=== PATIENT | female | born 1980 | race African-American/Black ===

== ENCOUNTER 2016-12-19 23:03 | Emergency (ER) | payer BC, MEDICAID ==
[2016-12-19 23:47] LABS: APPEARANCE,URINE SLIGHTLY-CLOUDY; BILIRUBIN,URINE NEGATIVE (NEGATIVE); GLUCOSE, URINE >=500 mg/dL (NEGATIVE); KETONES,URINE NEGATIVE (NEGATIVE); LEUKOCYTE ESTERASE,URINE LARGE (NEGATIVE); NITRITE,URINE NEGATIVE (NEGATIVE); PROTEIN,URINE 30 mg/dL (NEGATIVE); URINE SPECIFIC GRAVITY 1.032; UROBILINOGEN,URINE NEGATIVE mg/dL (<2.0)
[2016-12-20] MEDS ORDERED: METFORMIN HCL 500 MG TABLET PO ONE (01:13)
[2016-12-20] MEDS ORDERED: NITROFURANTOIN MONOHYD/M-CRYST 100 MG CAPSULE PO ONE (01:13)
--- NOTE | 2016-12-20 01:19 | ER Document Report ---
ED GI/ - General Chief Complaint: Urinary Frequency Stated Complaint: URINARY ISSUE Time Seen by Provider: 12/20/16 00:34 Mode of Arrival: Ambulatory Information source: Patient Notes: 36-year-old female presents to ED for urinary frequency and back discomfort starting yesterday morning. She has a history of diabetes type II asthma bronchitis. She states she does not take any medications for her her diabetes since 2014. She states she was first diagnosed in 2008 was started on insulin for year and then took metformin until 2014 states she does not check her sugar and is followed by [facility] TRAVEL OUTSIDE OF THE [place] IN LAST 30 DAYS: No - HPI Patient complains to provider of: Flank pain, Other - Urinary frequency and urgency Onset: This morning Timing/Duration: Gradual, Worse Quality of pain: Achy, Pressure Severity at maximum: Moderate Severity in ED: Moderate Pain Level: 4 Location: Left flank, Right flank Vaginal bleeding (Compared to normal period): None Associated symptoms: Odor, Radiates to back, Urinary frequency, Urinary urgency , Other - Burning with urination Exacerbated by: Movement, Walking Relieved by: Denies Similar symptoms previously: Yes Recently seen / treated by doctor: No - Related Data Allergies/Adverse Reactions: Penicillins Allergy (Intermediate, Verified 10/13/15 18:58) rash aspirin [Aspirin] Allergy (Verified 10/13/15 18:58) Sulfa (Sulfonamide Antibiotics) Allergy (Verified 10/13/15 18:58) Past Medical History - General Information source: Patient - Social History Smoking Status: Current Every Day Smoker Cigarette use (# per day): Yes - 5-6 cigarettes a day Chew tobacco use (# tins/day): No Smoking Education Provided: Yes - less than 2 minutes Frequency of alcohol use: Social Drug Abuse: None 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 Lives with: Family - Daughter Family History: Arthritis, CAD, CVA, DM, Hyperlipidemia, Hypertension, Malignancy, Thyroid Disfunction, Other - sister breast cancer, grandmother pancreatic - Past Medical History Cardiac Medical History: Reports: Hx Hypertension Pulmonary Medical History: Reports: Hx Asthma, Hx Bronchitis EENT Medical History: Reports: None Neurological Medical History: Reports: None Endocrine Medical History: Reports: Hx Diabetes Mellitus Type 2 Renal/ Medical History: Reports: Hx Pelvic Inflammatory Disease Malignancy Medical History: Reports: None GI Medical History: Reports: None Musculoskeltal Medical History: Reports Hx Musculoskeletal Deformity, Reports Hx Musculoskeletal Trauma Skin Medical History: Reports Hx Cellulitis Psychiatric Medical History: Reports: None Traumatic Medical History: Reports: Hx Fractures - toes Infectious Medical History: Reports: None Past Surgical History: Reports: Hx Breast Surgery - cyst/abcess, 2009, Hx Section - 2, Hx Tubal Ligation - Immunizations Immunizations up to date: Yes Hx Diphtheria, Pertussis, Tetanus Vaccination: Yes - 2008 Review of Systems - Review of Systems Constitutional: No symptoms reported EENT: No symptoms reported Cardiovascular: No symptoms reported Respiratory: No symptoms reported Gastrointestinal: No symptoms reported Genitourinary: Burning, Frequency, Flank pain, Urgency Female Genitourinary: No symptoms reported Musculoskeletal: No symptoms reported Skin: No symptoms reported Hematologic/Lymphatic: No symptoms reported Neurological/Psychological: No symptoms reported -: Yes All other systems reviewed and negative Physical Exam - Vital signs Vitals: Temp Pulse Resp BP 98.2 F 101 H 16 123/85 12/19/16 23:12 12/19/16 23:12 12/19/16 23:12 12/19/16 23:12 Interpretation: Normal - General General appearance: Appears well, Alert - HEENT Head: Normocephalic, Atraumatic Eyes: Normal Pupils: PERRL - Respiratory Respiratory status: No respiratory distress Chest status: Nontender Breath sounds: Normal Chest palpation: Normal - Cardiovascular Rhythm: Regular Heart sounds: Normal auscultation Murmur: No - Abdominal Inspection: Normal Distension: No distension Bowel sounds: Normal Tenderness: Nontender Organomegaly: No organomegaly - Back Back: Normal, CVA tenderness - Bilateral - Extremities General upper extremity: Normal inspection, Nontender, Normal color, Normal ROM , Normal temperature General lower extremity: Normal inspection, Nontender, Normal color, Normal ROM , Normal temperature, Normal weight bearing. No: Neel's sign - Neurological Neuro grossly intact: Yes Cognition: Normal Orientation: AAOx4 Loly Coma Scale Eye Opening: Spontaneous Loly Coma Scale Verbal: Oriented Granger Coma Scale Motor: Obeys Commands Granger Coma Scale Total: 15 Speech: Normal Motor strength normal: LUE, RUE, LLE, RLE Sensory: Normal - Psychological Associated symptoms: Normal affect, Normal mood - Skin Skin Temperature: Warm Skin Moisture: Dry Skin Color: Normal Course - Re-evaluation Re-evalutation: 12/20/16 01:53 After reviewing urine discussed patient's diabetic history with her. She states she took insulin from 199904/14/2010 and the metformin from 2009 until 2014 when they told her she no longer needed it she has not been checking her fingerstick sugars. Her blood sugar was 274. Patient was started back on metformin as well as given Macrobid for her UTI and instructed to follow-up with her primary doctor tomorrow to schedule follow-up - Vital Signs Vital signs: Temp Pulse Resp BP Pulse Ox 98.0 F 83 18 117/77 96 12/20/16 01:33 12/20/16 01:33 12/20/16 01:33 12/20/16 01:33 12/20/16 01:33 - Laboratory Laboratory results interpreted by me: 12/19/16 12/20/16 23:10 01:06 POC Glucose 273 H Urine Protein 30 H Urine Glucose (UA) >=500 H Urine Blood SMALL H Ur Leukocyte Esterase LARGE H Discharge - Discharge Clinical Impression: UTI (urinary tract infection) Qualifiers: Urinary tract infection type: site unspecified Hematuria presence: without hematuria Qualified Code(s): N39.0 - Urinary tract infection, site not specified Hyperglycemia due to type 2 diabetes mellitus Qualifiers: 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 This is due to germs growing in the bladder. This is a common problem. This infection usually responds quickly to antibiotics. Your antibiotic should be taken exactly as prescribed. Drink plenty of fluids -- three to four quarts a day. Occasionally, a bladder anesthetic will be prescribed to help stop the feeling of urgency until the antibiotic has a chance to clear the infection. This may cause your urine to be dark orange. Certain urine infections require a culture. If the doctor obtained a culture, the results will be back in two days. You should call to see if a change in treatment is needed. A repeat urinalysis after you finish treatment is often recommended. The physician will let you know if further testing is required. Call the doctor if you develop fever, chills, flank pain, inability to urinate, or blood in the urine. Diabetes You have an abnormally high blood sugar, suspicious for diabetes. Not all high blood sugar requires long-term treatment. High blood sugar can be due to medications, , or the stress of illness. (These cases are "borderline diabetes.") If the doctor feels your high blood sugar might get better with time, you may not require treatment now. You will be scheduled for further evaluation. It's very important that you follow through. Uncontrolled high blood sugar leads to early heart disease , strokes, nerve damage, eye damage, and kidney damage. All diabetics should follow a diet designed to control the blood sugar. Overweight diabetics should exercise regularly and lose weight. If this is not sufficient to control the blood sugar, pills or insulin shots are necessary. Younger people who develop diabetes almost always require insulin daily. Home testing of blood sugars or urine sugar is required. Diabetic teaching is available to help you figure insulin doses and monitor the blood sugar. Call the physician if there is faintness, excess sleepiness, or very rapid breathing. If hypoglycemia (LOW blood sugar) develops, symptoms are shakiness, weakness, sweating, and confusion. In this case, you should eat or drink something with sugar at once. NITROFURANTOIN (MACRODANTIN, MACROBID): You have received a prescription for nitrofurantoin (Macrodantin). This antibiotic is used for urinary tract infections. Women who are or nursing should notify the physician before taking this medicine. If you have ever had a problem caused by this medication in the past, be sure the physician is aware of it. Common side effects of this medicine include nausea, vomiting, or decreased appetite. Notify your physician if these side effects become severe. Immediately stop this medicine and call the physician if you develop cough , shortness of breath, chest pain, weakness, jaundice (yellow color of the skin and whites of the eyes), or a skin rash. Glucophage (Metformin hydrochloride) Glucophage is used to treat diabetes. It helps insulin move sugar from your blood stream into your cells. It also slows production of new blood sugar. Glucophage can be combined with another type of diabetes pill or with insulin injections. Glucophage should NOT be used by patients, true insulin-dependent (juvenile) diabetics, or those prone to acidosis (severe kidney disease, alcoholism, severe heart failure). You MUST NOT receive iodine-containing x-ray dye while taking Glucophage. The medicine must be stopped 2 days before the test. Be certain your doctor is aware you are taking Glucophage before undergoing IVP, angiograms, or other x- rays that require IV injection of dye. Glucophage commonly causes decreased appetite. Some patients may have nausea, vomiting, or diarrhea. If the side effects are severe, call your doctor. Glucophage will not cause hypoglycemia (low blood sugar) when used alone. Some patients using diabetes pills or insulin may experience symptoms of hypoglycemia (flushing, sweats, racing heart, lightheadedness). Eat or drink something sweet. Contact your doctor for further instructions. You may need to reduce the dose of insulin or of the other diabetes pill. FOLLOW-UP CARE: If you have been referred to a physician for follow-up care, call the physician s office for an appointment as you were instructed or within the next two days. If you experience worsening or a significant change in your symptoms, notify the physician immediately or return to the Emergency Department at any time for re-evaluation. Prescriptions: Metformin HCl [Glucophage] 500 mg PO BID #60 tablet Nitrofurantoin/Nitrofuran Mac [Macrobid 100 mg Capsule] 1 tab PO BID #20 capsule Forms: Smoking Cessation Education, Return to Work [facility] - Follow up tomorrow
[2016-12-20 01:34] VITALS: BP 117/77
== END 2016-12-20 01:34 | disposition home or self-care (01) ==
LOC: ER 23:03
DX: N39.0 Urinary tract infection, site not specified (principal); E11.65 Type 2 diabetes mellitus with hyperglycemia; F17.210 Nicotine dependence, cigarettes, uncomplicated; I10 Essential (primary) hypertension; Z88.0 Allergy status to penicillin; Z88.2 Allergy status to sulfonamides; Z88.6 Allergy status to analgesic agent
CPT/HCPCS: 99283; 82962; 81025; 81001; J3490 ×2; J8499

== ENCOUNTER 2017-04-25 20:59 | Emergency (ER) | payer SELFPAY ==
[2017-04-25] MEDS ORDERED: IPRATROPIUM/ALBUTEROL 0.5-2.5 MG/3 ML AMPUL NEB ONE (21:14)
[2017-04-25] MEDS ORDERED: PREDNISONE 20 MG TABLET PO ONE (21:14)
[2017-04-25] MEDS ORDERED: ALBUTEROL SULFATE 0.083% NEB 2.5 MG/3 ML AMPUL NEB SCH (21:29)
--- NOTE | 2017-04-25 22:02 | RADIOLOGY REPORT (SQ) ---
EXAM DESCRIPTION: CHEST SINGLE VIEW COMPLETED DATE/TIME: 04/25/2017 9:53 pm REASON FOR STUDY: ASTHMA COMPARISON: 11/02/2015 EXAM PARAMETERS: NUMBER OF VIEWS: One view. TECHNIQUE: Single frontal radiographic view of the chest acquired. RADIATION DOSE: NA LIMITATIONS: None. FINDINGS: LUNGS AND PLEURA: No opacities, masses or pneumothorax. No pleural effusion. MEDIASTINUM AND HILAR STRUCTURES: No masses. Contour normal. HEART AND VASCULAR STRUCTURES: Heart normal in size. Normal vasculature. BONES: No acute findings. HARDWARE: None in the chest. OTHER: No other significant finding. IMPRESSION: NO ACUTE RADIOGRAPHIC FINDING IN THE CHEST. TECHNICAL DOCUMENTATION: JOB ID: [id number]
--- NOTE | 2017-04-25 23:27 | ER Document Report ---
ED Respiratory Problem - General Chief Complaint: Shortness Of Breath Stated Complaint: BREATHING DIFFICULTY,CHEST PAIN Time Seen by Provider: 04/25/17 23:26 Mode of Arrival: Ambulatory Information source: Patient Notes: Patient is a 37-year-old female with asthma who presents to the ER today for 3 days of shortness of breath with cough and chest pain that started prior to arrival the left side of the chest, worse with breathing, that radiates to the left arm. Patient has a history of heart attack or stroke. Patient has been using her own albuterol inhaler at home without relief. TRAVEL OUTSIDE OF THE [place] IN LAST 30 DAYS: No - Related Data Allergies/Adverse Reactions: Penicillins Allergy (Intermediate, Verified 10/13/15 18:58) rash aspirin [Aspirin] Allergy (Verified 10/13/15 18:58) Sulfa (Sulfonamide Antibiotics) Allergy (Verified 10/13/15 18:58) Past Medical History - General Information source: Patient - Social History Smoking Status: Former Smoker Family History: Arthritis, CAD, CVA, DM, Hyperlipidemia, Hypertension, Malignancy, Thyroid Disfunction, Other - sister breast cancer, grandmother pancreatic Patient has suicidal ideation: No Patient has homicidal ideation: No - Past Medical History Cardiac Medical History: Reports: Hx Hypertension Pulmonary Medical History: Reports: Hx Asthma, Hx Bronchitis Endocrine Medical History: Reports: Hx Diabetes Mellitus Type 2 Renal/ Medical History: Reports: Hx Pelvic Inflammatory Disease. Denies: Hx Peritoneal Dialysis Musculoskeltal Medical History: Reports Hx Musculoskeletal Deformity, Reports Hx Musculoskeletal Trauma Skin Medical History: Reports Hx Cellulitis Traumatic Medical History: Reports: Hx Fractures - toes Past Surgical History: Reports: Hx Breast Surgery - cyst/abcess, 2009, Hx Section - 2, Hx Tubal Ligation - Immunizations Immunizations up to date: Yes Hx Diphtheria, Pertussis, Tetanus Vaccination: Yes - 2008 Review of Systems - Review of Systems Constitutional: See HPI EENT: No symptoms reported Cardiovascular: No symptoms reported Respiratory: See HPI Gastrointestinal: No symptoms reported Genitourinary: No symptoms reported Female Genitourinary: No symptoms reported Musculoskeletal: No symptoms reported Skin: No symptoms reported Hematologic/Lymphatic: No symptoms reported Neurological/Psychological: No symptoms reported Physical Exam - Notes Notes: PHYSICAL EXAMINATION: GENERAL: Mildly ill-appearing, but in no acute distress. HEAD: Atraumatic, normocephalic. EYES: Pupils equal round and reactive to light, extraocular movements intact, sclera anicteric, conjunctiva are normal. ENT: ear canals without erythema or foreign body, TMs pearly nolan with good bony landmarks, nares with mucoid discharge, oropharynx clear without exudates. Moist mucous membranes. Airway patent NECK: Normal range of motion, supple without lymphadenopathy LUNGS: CTAB and equal. No wheezes rales or rhonchi. HEART: Chest tender to palpation over the left, regular rate and rhythm without murmurs ABDOMEN: Soft, no tenderness. No guarding, no rebound EXTREMITIES: Normal range of motion, no pitting edema. No cyanosis. NEUROLOGICAL: Cranial nerves grossly intact. Normal sensory/motor exams. PSYCH: Normal mood, normal affect. SKIN: Warm, Dry, normal turgor, no rashes or lesions noted Course - Re-evaluation Re-evalutation: 04/26/17 00:49 Labwork is unremarkable today including normal set of cardiac enzymes. Chest x- ray is unremarkable today. I will treat patient for bronchitis. - Laboratory Result Diagrams: 04/25/17 23:55 04/25/17 23:55 Laboratory results interpreted by me: 04/25/17 23:55 Glucose 319 H AST 12 L Discharge - Discharge Clinical Impression: Asthmatic bronchitis Qualifiers: Asthma severity: unspecified severity Asthma complication type: with acute exacerbation Qualified Code(s): J45.901 - Unspecified asthma with (acute) exacerbation Condition: Stable Disposition: HOME, SELF-CARE Additional Instructions: Return immediately for any new or worsening symptoms. Follow up with primary care provider, call tomorrow to make followup appointment. Prescriptions: Azithromycin [Zithromax 250 mg Tablet] 250 mg PO ASDIR PRN #6 tablet PRN Reason: Fluconazole [Diflucan] 150 mg PO ONCE PRN #2 tablet PRN Reason: Promethazine/Dextromethorphan [Promethazine-Dm Syrup] 5 ml PO Q8 PRN #120 ml PRN Reason: Forms: Return to Work
[2017-04-25] MEDS ORDERED: IBUPROFEN 800 MG TABLET PO ONE (23:55)
[2017-04-25] MEDS ORDERED: CYCLOBENZAPRINE HCL 10 MG TABLET PO ONE (23:55)
[2017-04-26 00:08] LABS: ABSOLUTE BASOPHILS # (AUTO) 0.1 10^3/uL (0.0-0.2); ABSOLUTE EOSINOPHILS # (AUTO) 0.4 10^3/uL (0.0-0.6); ABSOLUTE LYMPHOCYTES (AUTO) 3.6 10^3/uL (0.5-4.7); ABSOLUTE MONOCYTES (AUTO) 0.6 10^3/uL (0.1-1.4); ABSOLUTE NEUT (AUTO) 4.4 10^3/uL (1.7-8.2); BASOPHILS % (AUTO) 0.9 % (0-2); EOSINOPHILS % (AUTO) 4.1 % (0-6); HEMATOCRIT 42.2 % (36.0-47.0); HEMOGLOBIN 14.2 g/dL (12.0-15.5); HGB HCT DIFFERENCE 0.4; LYMPHOCYTES % (AUTO) 40.1 % (13-45); MEAN CORPUSCULAR HEMOGLOBIN 29.8 pg (27.0-33.4); MEAN CORPUSCULAR HGB CONC 33.6 g/dL (32.0-36.0); MEAN CORPUSCULAR VOLUME 89 fl (80-97); MONOCYTES % (AUTO) 6.2 % (3-13); RED BLOOD COUNT 4.75 10^6/uL (3.72-5.28); RED CELL DISTRIBUTION WIDTH 13.7 % (11.5-14.0); SEGMENTED NEUTROPHILS % (AUTO) 48.7 % (42-78)
[2017-04-26 00:17] LABS: ALANINE AMINOTRANSFERASE 22 U/L (9-52); ALBUMIN 4.3 g/dL (3.5-5.0); ALKALINE PHOSPHATASE 94 U/L (38-126); ANION GAP 11 (5-19); ASPARTATE AMINO TRANSFERASE 12 U/L (14-36); BILIRUBIN,DIRECT 0.4 mg/dL (0.0-0.4); BILIRUBIN,TOTAL 0.4 mg/dL (0.2-1.3); BLOOD UREA NITROGEN 10 mg/dL (7-20); CALCIUM 10.1 mg/dL (8.4-10.2); CARBON DIOXIDE 27 mmol/L (22-30); CHLORIDE 102 mmol/L (98-107); CREATINE KINASE 56 U/L (30-135); CREATININE RESULT 0.62 mg/dL (0.52-1.25); GLUCOSE 319 mg/dL (75-110); POTASSIUM 4.2 mmol/L (3.6-5.0); SODIUM 139.6 mmol/L (137-145)
[2017-04-26 00:30] LABS: CREATINE KINASE MB < 0.22 ng/mL (<4.55); TROPONIN I < 0.012 ng/mL
[2017-04-26] MEDS ORDERED: CYCLOBENZAPRINE HCL 10 MG TABLET PO ONE (00:51)
[2017-04-26] MEDS ORDERED: ALBUTEROL SULFATE HFA (90 MCG/PUFF) 8 GM MDI (1 MDI/ER DISP) IH PRN (00:54)
[2017-04-26 00:58] LABS: APPEARANCE,URINE CLEAR; BILIRUBIN,URINE NEGATIVE (NEGATIVE); GLUCOSE, URINE >=500 mg/dL (NEGATIVE); KETONES,URINE NEGATIVE (NEGATIVE); LEUKOCYTE ESTERASE,URINE SMALL (NEGATIVE); NITRITE,URINE NEGATIVE (NEGATIVE); PROTEIN,URINE NEGATIVE (NEGATIVE); UROBILINOGEN,URINE NEGATIVE mg/dL (<2.0)
[2017-04-26 01:28] VITALS: BP 115/74
== END 2017-04-26 01:32 | disposition home or self-care (01) ==
LOC: ER 20:59
DX: J45.901 Unspecified asthma with (acute) exacerbation (principal); R06.02 Shortness of breath; R07.9 Chest pain, unspecified; R05 Cough; Z87.891 Personal history of nicotine dependence
CPT/HCPCS: 94640; 99285; 36415; 82553; 82550; 85025; 81025; 80053; 81001; 84484; 71010; J3490; J7620

== ENCOUNTER 2017-12-02 20:50 | Emergency (ER) | payer SELFPAY ==
[2017-12-02] MEDS ORDERED: LIDOCAINE 1% INJ-PF (10 MG/ML) 30 ML SDV INJ ONE (22:16)
--- NOTE | 2017-12-02 22:16 | ER Document Report ---
HPI - HPI Pain Level: 3 Context: Patient is a 37-year-old female who presents emergency department the chief complaint of abscess. Patient states that she has a blackhead in between her shoulder blades that she has had for 10 years and in 3 months and while she has a friend tried to pop it and get the contents out. She states 1 week ago a friend tried to pop it but to get everything out so she started putting a cream over top of it and now it is tender and red. She denies any fevers or chills, purulent drainage. - CONSTITUTIONAL Constitutional: DENIES: Fever, Chills - EENT EENT: DENIES: Sore Throat, Ear Pain, Eye problems - NEURO Neurology: DENIES: Headache, Weakness, Vision blurred, Dizzinesss / Vertigo - CARDIOVASCULAR Cardiovascular: DENIES: Chest pain - RESPIRATORY Respiratory: DENIES: Trouble Breathing, Coughing - GASTROINTESTINAL Gastrointestinal: DENIES: Abdominal Pain, Black / Bloody Stools - URINARY Urinary: DENIES: Dysuria, Urgency, Frequency - REPRODUCTIVE LMP: 11/08/17 Reproductive: DENIES: : - MUSCULOSKELETAL Musculoskeletal: DENIES: Extremity pain Past Medical History - Social History Smoking Status: Unknown if Ever Smoked Family History: Arthritis, CAD, CVA, DM, Hyperlipidemia, Hypertension, Malignancy, Thyroid Disfunction, Other - sister breast cancer, grandmother pancreatic Patient has suicidal ideation: No Patient has homicidal ideation: No - Past Medical History Cardiac Medical History: Reports: Hx Hypertension Pulmonary Medical History: Reports: Hx Asthma, Hx Bronchitis Endocrine Medical History: Reports: Hx Diabetes Mellitus Type 2 Renal/ Medical History: Reports: Hx Pelvic Inflammatory Disease. Denies: Hx Peritoneal Dialysis Musculoskeltal Medical History: Reports Hx Musculoskeletal Deformity, Reports Hx Musculoskeletal Trauma Skin Medical History: Reports Hx Cellulitis Traumatic Medical History: Reports: Hx Fractures - toes Past Surgical History: Reports: Hx Breast Surgery - cyst/abcess, 2009, Hx Section - 2, Hx Tubal Ligation - Immunizations Immunizations up to date: Yes Hx Diphtheria, Pertussis, Tetanus Vaccination: Yes - 2008 Vertical Provider Document - CONSTITUTIONAL Agree With Documented VS: Yes Notes: PHYSICAL EXAM GENERAL: Alert, interacts well. HEAD: Normocephalic, atraumatic. EXTREMITIES: Moves all 4 extremities spontaneously. No edema, radial and dorsalis pedis pulses 2/4 bilaterally. No cyanosis. NEUROLOGICAL: Alert and oriented x4. Normal speech. PSYCH: Normal affect, normal mood. SKIN: Warm, dry, normal turgor. 2cm erythematous and firm area with overlying scab - INFECTION CONTROL TRAVEL OUTSIDE OF THE [place] IN LAST 30 DAYS: No Course - Re-evaluation Re-evalutation: 12/02/17 22:55 Patient is a 37-year-old female is hemodynamically stable, no acute distress. VSS. Site was anesthetized and incision and drainage for approximately 5 cc of purulent material. Patient given strict return precautions and stable for discharge home. - Vital Signs Vital signs: Temp Pulse Resp BP Pulse Ox 98.1 F 90 19 122/77 100 12/02/17 20:54 12/02/17 20:54 12/02/17 20:54 12/02/17 20:54 12/02/17 20:54 Procedures - Incision and Drainage Back Type: Simple Anesthetic type: 1% Lidocaine mL's of anesthetic: 5 Blade size: 11 I&D procedure: Betadine prep applied Incision Method: Incision made by scalpel Discharge - Discharge Clinical Impression: Abscess Condition: Good Disposition: HOME, SELF-CARE Instructions: Abscess ([facility]) Prescriptions: Clindamycin HCl 450 mg PO TID #45 capsule Referrals: BRENDAN MOON DO [Primary Care Provider] - Follow up in 3-5 days
[2017-12-02] MEDS ORDERED: CLINDAMYCIN HCL 150 MG CAPSULE PO ONE (22:57)
[2017-12-02 23:20] VITALS: BP 122/74
== END 2017-12-02 23:20 | disposition home or self-care (01) ==
LOC: ER 20:50
DX: L02.212 Cutaneous abscess of back [any part, except buttock and flank] (principal); E11.9 Type 2 diabetes mellitus without complications; I10 Essential (primary) hypertension; J45.909 Unspecified asthma, uncomplicated
CPT/HCPCS: 99283; 10060; J3490

== ENCOUNTER 2018-01-05 20:40 | Emergency (ER) | payer SELFPAY ==
[2018-01-05] MEDS ORDERED: DEXAMETHASONE SOD PHOS INJ 10 MG/1 ML VIAL IM ONE (21:39)
--- NOTE | 2018-01-05 21:42 | ER Document Report ---
ED ENT - General Chief Complaint: Sore Throat Stated Complaint: SORE THROAT Time Seen by Provider: 01/05/18 21:16 Mode of Arrival: Ambulatory Information source: Patient TRAVEL OUTSIDE OF THE [place] IN LAST 30 DAYS: No - HPI Patient complains to provider of: Throat problem Notes: Patient is here with complaints of sore throat. States that she had symptoms for about a week now. She has had nasal congestion, runny nose, cough, loss of voice. She had fevers initially, but these have since resolved. She also has a history of allergies and just thinking that her symptoms were potentially due to her allergies. She has been taking Zyrtec. She denies any difficulty breathing or swallowing. She has pain with swallowing. She denies any nausea, vomiting, diarrhea. No chest pain or shortness of breath. No rash. She does report that her children were sick with similar symptoms a week prior to her being sick. Pain is worse with swelling, nothing makes it better. She denies any other complaints at this time. - Related Data Allergies/Adverse Reactions: Penicillins Allergy (Intermediate, Verified 12/02/17 20:51) rash aspirin [Aspirin] Allergy (Verified 12/02/17 20:51) Sulfa (Sulfonamide Antibiotics) Allergy (Verified 12/02/17 20:51) Past Medical History - Social History Smoking Status: Current Every Day Smoker Chew tobacco use (# tins/day): No Frequency of alcohol use: Social Drug Abuse: None Family History: Arthritis, CAD, CVA, DM, Hyperlipidemia, Hypertension, Malignancy, Thyroid Disfunction, Other - sister breast cancer, grandmother pancreatic Patient has suicidal ideation: No Patient has homicidal ideation: No - Past Medical History Cardiac Medical History: Reports: Hx Hypertension Pulmonary Medical History: Reports: Hx Asthma, Hx Bronchitis Endocrine Medical History: Reports: Hx Diabetes Mellitus Type 2 Renal/ Medical History: Reports: Hx Pelvic Inflammatory Disease. Denies: Hx Peritoneal Dialysis Musculoskeltal Medical History: Reports Hx Musculoskeletal Deformity, Reports Hx Musculoskeletal Trauma Skin Medical History: Reports Hx Cellulitis Traumatic Medical History: Reports: Hx Fractures - toes Past Surgical History: Reports: Hx Breast Surgery - cyst/abcess, 2009, Hx Section - 2, Hx Tubal Ligation - Immunizations Immunizations up to date: Yes Hx Diphtheria, Pertussis, Tetanus Vaccination: Yes - 2008 Review of Systems - Review of Systems -: Yes All other systems reviewed and negative Physical Exam - Vital signs Vitals: Temp Pulse Resp BP Pulse Ox 99.8 F 93 20 122/82 98 01/05/18 20:53 01/05/18 20:53 01/05/18 20:53 01/05/18 20:53 01/05/18 20:53 - Notes Notes: GENERAL: alert, cooperative, nontoxic, no distress. HEAD: normocephalic, atraumatic EYES: conjunctiva pink without discharge, no external redness or swelling. EARS: no external swelling, no external redness, no mastoid redness, swelling, tenderness. Ear canals are clear without swelling or drainage. TMs pearly cantrell , no redness, no bulging, normal landmarks, no perforation. NOSE: atraumatic, no external swelling. clear rhinorrhea noted. MOUTH/THROAT: mucous membranes moist and pink, posterior pharynx without erythema, swelling, exudate. No trismus or drooling. Slightly hoarse voice. NECK: soft, supple, full range of motion, no meningismus. CHEST: no distress, lungs clear and equal throughout. No wheezing, rales, rhonchi. CARDIAC: regular rate and rhythm, no murmur, normal capillary refill, normal pulses. No peripheral edema noted. BACK: full range of motion, no CVA tenderness. EXTREMITIES: full range of motion of all extremities. No redness, no swelling. NEURO: alert and oriented A&O3, no focal deficits, full range of motion of all extremities. PYSCH: appropriate mood, affect. Patient is cooperative. SKIN: pink, warm, dry, no rash. Course - Re-evaluation Re-evalutation: 01/05/18 23:16 Patient is nontoxic appearing with stable vitals. The patient is here with complaints of sore throat, cough, loss of voice for the last week. She has a benign exam. She is in no distress. No sign of peritonsillar abscess, epiglottitis, retropharyngeal abscess. Airway is patent. Rapid strep is negative. She does have a slightly hoarse voice. She is also noted to have a cough. Likely has some laryngitis from a viral infection. Rapid strep was negative. Patient was given Decadron in the emergency department. She will be discharged home with Flonase, Naprosyn, instructions to drink plenty of fluids. Follow-up if not better in the next week, sooner for worsening symptoms, high fever, difficulty breathing or swallowing, persistent vomiting, or for any further concerns. The patient is noted to have elevated blood pressure during today's emergency department visit. The patient was informed of this finding. The patient was instructed that this may be related to pre-hypertension and requires further evaluation with a primary care provider. The patient has no hypertensive symptoms at this time. The patient's emergency department workup and current diagnosis were explained to the patient and or family. Follow-up instructions were provided. Medications if prescribed were discussed. Instructions for when to return to the emergency department including specific worrisome symptoms were discussed with the patient and/or family. - Vital Signs Vital signs: Temp Pulse Resp BP Pulse Ox 99.8 F 93 20 122/82 98 01/05/18 20:53 01/05/18 20:53 01/05/18 20:53 01/05/18 20:53 01/05/18 20:53 Discharge - Discharge Clinical Impression: Laryngitis URI (upper respiratory infection) Qualifiers: URI type: unspecified viral URI Qualified Code(s): J06.9 - Acute upper respiratory infection, unspecified Condition: Stable Disposition: HOME, SELF-CARE Instructions: Laryngitis ([facility]), Upper Respiratory Illness ([facility]), Viral Syndrome ([facility]) Additional Instructions: Take medications as prescribed. Drink plenty fluids. Follow-up with your doctor if not better in 1 week, sooner for worsening symptoms, high fever, difficulty breathing or swelling, persistent vomiting, or for any further concerns. Your blood pressure was elevated during today's visit. Have this rechecked with your doctor. Prescriptions: Fluticasone Propionate [Flonase Nasal [place] 50 Mcg/[place] 16 gm] 1 spray NASL Q12 #1 inhaler Naproxen [Naprosyn] 500 mg PO BID #20 tablet Forms: Elevated Blood Pressure, Smoking Cessation Education Referrals: JACOB CASTRO MD [Primary Care Provider] - Follow up as needed
[2018-01-05 23:43] VITALS: BP 117/78
== END 2018-01-05 23:43 | disposition home or self-care (01) ==
LOC: ER 20:40
DX: J04.0 Acute laryngitis (principal); B97.89 Other viral agents as the cause of diseases classified elsewhere; J02.9 Acute pharyngitis, unspecified; R09.81 Nasal congestion; R05 Cough; R09.89 Other specified symptoms and signs involving the circulatory and respiratory systems; R49.0 Dysphonia; I10 Essential (primary) hypertension; E11.9 Type 2 diabetes mellitus without complications; F17.200 Nicotine dependence, unspecified, uncomplicated; J45.909 Unspecified asthma, uncomplicated; Z79.899 Other long term (current) drug therapy; Z88.2 Allergy status to sulfonamides; Z88.6 Allergy status to analgesic agent; Z88.0 Allergy status to penicillin
CPT/HCPCS: 99283; 96372; 87070; 87880; J1100

== ENCOUNTER 2018-04-12 15:59 | Emergency (ER) | payer SELFPAY ==
[2018-04-12] MEDS ORDERED: KETOROLAC TROMETHAMINE 60 MG/2 ML SDV IM ONE (16:36)
[2018-04-12] MEDS ORDERED: BACLOFEN 20 MG TABLET PO ONE (16:36)
--- NOTE | 2018-04-12 17:09 | ER Document Report ---
ED General Pain - General Chief Complaint: Numbness of Arm Stated Complaint: BODY PAIN Time Seen by Provider: 04/12/18 16:35 Mode of Arrival: Ambulatory Information source: Patient Notes: Chief complaint: Left shoulder left back, left arm pain History of complain:( obtained from----patient) 38 years old female presents today with nearly 2-3 day history of left shoulder left arm numbness and left upper back pain. Particularly on change of position and moving around. Therefore present to the ED. No known injury. 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 No fever chills or other constitutional symptoms. Onset: Gradual Duration: Few days Severity: Moderate to severe Quality: Sharp crampy Context: As described above Exacerbating factor and relieving factors: Change of position REVIEW OF SYSTEMS: CONSTITUTIONAL : Denies fever, chills, or sweats. Denies recent illness. EENT: Denies eye, ear, throat, or mouth pain or symptoms. Denies nasal or sinus congestion or discharge. Denies throat, tongue, or mouth swelling or difficulty swallowing. CARDIOVASCULAR: Denies chest pain. Denies palpitations or racing or irregular heart beat. Denies ankle edema. RESPIRATORY: Denies cough, cold, or chest congestion. Denies shortness of breath, difficulty breathing, or wheezing. GASTROINTESTINAL: Denies distention. Denies nausea, vomiting, or diarrhea. Denies blood in vomitus, stools, or per rectum. Denies black, tarry stools. Denies constipation. GENITOURINARY: Denies difficulty urinating, painful urination, burning, frequency, blood in urine, or discharge. FEMALE GENITOURINARY: Denies vaginal bleeding, heavy or abnormal periods, irregular periods. Denies vaginal discharge or odor. MUSCULOSKELETAL: Denies back or neck pain or stiffness. Denies joint pain or swelling. SKIN: Denies rash, lesions or sores. HEMATOLOGIC : Denies easy bruising or bleeding. LYMPHATIC: Denies swollen, enlarged glands. NEUROLOGICAL: Denies confusion or altered mental status. Denies passing out or loss of consciousness. Denies dizziness or lightheadedness. Denies headache. Denies weakness or paralysis or loss of use of either side. Denies problems with gait or speech. Denies sensory loss, numbness, or tingling. Denies seizures. PSYCHIATRIC: Denies anxiety or stress. Denies depression, suicidal ideation, or homicidal ideation. ALL OTHER SYSTEMS REVIEWED AND NEGATIVE. PHYSICAL EXAMINATION: GENERAL: Well-appearing, well-nourished and in no acute distress. HEAD: Atraumatic, normocephalic. EYES: Pupils equal round and reactive to light, extraocular movements intact, conjunctiva are normal. ENT: Nares patent, oropharynx clear without exudates. Moist mucous membranes. NECK: Normal range of motion, supple without lymphadenopathy LUNGS: Breath sounds clear to auscultation bilaterally and equal. No wheezes rales or rhonchi. HEART: Regular rate and rhythm without murmurs ABDOMEN: Soft, nontender, nondistended abdomen. No guarding, no rebound. No masses appreciated. Examination of genitals-deferred Musculoskeletal: Sharp tenderness were noted the entire distribution of the trapezoid muscle on the left side. NEUROLOGICAL: Cranial nerves grossly intact. Normal speech, normal gait. Normal sensory, motor exams PSYCH: Normal mood, normal affect. SKIN: Warm, Dry, normal turgor, no rashes or lesions noted. Dictation was performed using [employer] voice recognition software TRAVEL OUTSIDE OF THE [place] IN LAST 30 DAYS: No - HPI Notes: Dictated - Related Data Allergies/Adverse Reactions: Penicillins Allergy (Intermediate, Verified 12/02/17 20:51) rash aspirin [Aspirin] Allergy (Verified 12/02/17 20:51) Sulfa (Sulfonamide Antibiotics) Allergy (Verified 12/02/17 20:51) Past Medical History - Social History Smoking Status: Never Smoker Chew tobacco use (# tins/day): No Frequency of alcohol use: None Drug Abuse: None Lives with: Family Family History: Reviewed & Not Pertinent, Arthritis, CAD, CVA, DM, Hyperlipidemia, Hypertension, Malignancy, Thyroid Disfunction, Other - sister breast cancer, grandmother pancreatic Patient has suicidal ideation: No Patient has homicidal ideation: No - Past Medical History Cardiac Medical History: Reports: Hx Hypertension Pulmonary Medical History: Reports: Hx Asthma, Hx Bronchitis Endocrine Medical History: Reports: Hx Diabetes Mellitus Type 2 Renal/ Medical History: Reports: Hx Pelvic Inflammatory Disease. Denies: Hx Peritoneal Dialysis Musculoskeletal Medical History: Reports Hx Musculoskeletal Deformity, Reports Hx Musculoskeletal Trauma Skin Medical History: Reports Hx Cellulitis Traumatic Medical History: Reports: Hx Fractures - toes Past Surgical History: Reports: Hx Breast Surgery - cyst/abcess, 2009, Hx Section - 2, Hx Tubal Ligation - Immunizations Immunizations up to date: Yes Hx Diphtheria, Pertussis, Tetanus Vaccination: Yes - 2008 Review of Systems - Review of Systems Notes: Dictated Physical Exam - Vital signs Vitals: Temp Pulse Resp BP Pulse Ox 97.9 F 106 H 18 131/86 H 99 04/12/18 16:07 04/12/18 16:07 04/12/18 16:07 04/12/18 16:07 04/12/18 16:07 - Notes Notes: Dictated Course - Re-evaluation Re-evalutation: 04/12/18 17:06 Given baclofen and Toradol - Vital Signs Vital signs: Temp Pulse Resp BP Pulse Ox 97.9 F 106 H 18 131/86 H 99 04/12/18 16:07 04/12/18 16:07 04/12/18 16:07 04/12/18 16:07 04/12/18 16:07 Discharge - Discharge Clinical Impression: Trapezius muscle strain Qualifiers: Encounter type: initial encounter Laterality: left Qualified Code(s): S46.812A - Strain of other muscles, fascia and tendons at shoulder and upper arm level, left arm, initial encounter Condition: Fair Disposition: HOME, SELF-CARE Instructions: Sprain ([facility]) Additional Instructions: Sprain Your injury is a sprain. A sprain results from stretching or tearing of the ligaments, usually from a twisting injury. The ligaments will require time and protection in order to heal properly. Many sprains are quite disabling and should be taken seriously. The usual initial treatment of sprains is cold packs, elevation, and rest of the injured area. Your physician has assessed the seriousness of your ligament injury, and has outlined a treatment plan. Understand that this treatment may change, depending on how you progress. If a re-examination was recommended, it is important that you follow up as instructed. Call the doctor any time if there is severe pain, numbness, or loss of function in the injured area. Prescriptions: Diazepam [Valium 2 mg Tablet] 2 mg PO BID #15 tablet Hydrocodone/Acetaminophen [Hydrocodon-Acetaminophen 5-325] 1 each PO TID #14 tablet Naproxen [Naprosyn] 500 mg PO BID #30 tablet Referrals: JACOB CASTRO MD [Primary Care Provider] - Follow up as needed
[2018-04-12 17:29] VITALS: BP 122/79
== END 2018-04-12 17:29 | disposition home or self-care (01) ==
LOC: ER 15:59
DX: S46.812A Strain of other muscles, fascia and tendons at shoulder and upper arm level, left arm, initial encounter (principal); R20.0 Anesthesia of skin; M25.512 Pain in left shoulder; M54.9 Dorsalgia, unspecified; I10 Essential (primary) hypertension; E11.9 Type 2 diabetes mellitus without complications; J45.909 Unspecified asthma, uncomplicated; X58.XXXA Exposure to other specified factors, initial encounter
CPT/HCPCS: 99284; 96372; J1885; J3490

== ENCOUNTER 2018-09-25 18:44 | Emergency (ER) | payer SELFPAY ==
[2018-09-25] MEDS ORDERED: TRAMADOL HCL 50 MG TABLET PO ONE (20:12)
--- NOTE | 2018-09-25 20:12 | ER Document Report ---
ED General - General Chief Complaint: Hand Pain Stated Complaint: HAND PAIN Time Seen by Provider: 09/25/18 19:38 Primary Care Provider: LAUREEN ACEVEDO DO [Primary Care Provider] - Follow up as needed Mode of Arrival: Ambulatory Information source: Patient TRAVEL OUTSIDE OF THE [place] 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 Approximately 1 week ago she was typing and felt a pop in her hand and has since developed pain with movement of her thumb and her right wrist and she perceives that there is been some swelling present. 1 of the bones on the ulnar side of her hand feels like it sticking out. - Related Data Allergies/Adverse Reactions: Penicillins Allergy (Intermediate, Verified 09/25/18 18:47) rash aspirin [Aspirin] Allergy (Verified 09/25/18 18:47) Sulfa (Sulfonamide Antibiotics) Allergy (Verified 09/25/18 18:47) Past Medical History - General Information source: Patient - Social History Smoking Status: Current Every Day Smoker Chew tobacco use (# tins/day): Yes Frequency of alcohol use: Heavy Drug Abuse: None Family History: Reviewed & Not Pertinent, Arthritis, CAD, CVA, DM, Hyperlipidemia, Hypertension, Malignancy, Thyroid Disfunction, Other - sister breast cancer, grandmother pancreatic Patient has suicidal ideation: No Patient has homicidal ideation: No - Past Medical History Cardiac Medical History: Reports: Hx Hypertension Pulmonary Medical History: Reports: Hx Asthma, Hx Bronchitis Endocrine Medical History: Reports: Hx Diabetes Mellitus Type 2 Renal/ Medical History: Reports: Hx Pelvic Inflammatory Disease. Denies: Hx Peritoneal Dialysis Musculoskeletal Medical History: Reports Hx Musculoskeletal Deformity, Reports Hx Musculoskeletal Trauma Skin Medical History: Reports Hx Cellulitis Traumatic Medical History: Reports: Hx Fractures - toes Past Surgical History: Reports: Hx Breast Surgery - cyst/abcess, 2009, Hx Section - 2, Hx Tubal Ligation - Immunizations Immunizations up to date: Yes Hx Diphtheria, Pertussis, Tetanus Vaccination: Yes - 2008 Review of Systems - Review of Systems Notes: Constitutional: No fevers. No chills. EENT: No eye redness. No eye pain. No ear pain. No sore throat. Cardiovascular: No chest pain. No palpitations. Respiratory: No cough. No shortness of breath. No respiratory distress. Gastrointestinal: No abdominal pain. No nausea, vomiting, or diarrhea. Genitourinary: Atraumatic. No lesions. No pain. No discharge. Musculoskeletal: Left hand and wrist pain and swelling Skin: No rash or lesions. Lymphatic: No swollen lymph nodes. Neurologic: No headache. No syncope. Psychiatric: No suicidal or homicidal ideation. Physical Exam - Notes Notes: General: Well-developed, well-nourished. In no acute distress. Non-toxic appearing. Cardiac: Well-perfused. Regular rate and rhythm. No murmurs, rubs, or gallops. Pulmonary: No respiratory distress. No cyanosis. Bilateral lung fiels are clear to auscultation. Abdominal: Non-distended. Non-rigid. Bowels sounds are present in all four quadrants. No guarding or rebound. HEENT: Head is atraumatic. Conjunctivae not reddened. No tearing. PERRL. EOMI. Orbits atraumatic. No periorbital swelling or erythema. Oropharynx is without erythema, swelling, or exudates. Neck: Supple. No adenopathy. No meningismus. Dermatologic: Warm with good turgor. No rash. Atraumatic. Chest: Atraumatic. No chest wall tenderness to palpation. Musculoskeletal: There is tenderness to palpation of the left proximal hand palmar and dorsal aspects. No deformities. No obvious soft tissue swelling or erythema. Flexion and extension of the left wrist elicits tenderness. Distal neurovascular exam is intact Genitourinary: Examination deferred Neurologic: No gross neurologic deficits. Psychiatric: Normal mood. Course - Re-evaluation Re-evalutation: 09/25/18 20:11 X-ray but probable sprain/tendinitis. Will need OrthO. 09/25/18 21:07 X-ray negative as expected. Velcro wrist splint. Will refer to Orth [facility] Discharge - Discharge Clinical Impression: Left wrist sprain Qualifiers: Encounter type: initial encounter Qualified Code(s): S63.502A - Unspecified sprain of left wrist, initial encounter Condition: Good Disposition: HOME, SELF-CARE Instructions: Sprain ([facility]) Prescriptions: Tramadol HCl/Acetaminophen [Ultracet 37.5 mg/325 mg Tablet] 1 each PO Q6HP PRN #12 tablet PRN Reason: Referrals: LAUREEN ACEVEDO DO [Primary Care Provider] - Follow up as needed HAYDEN WHEELER MD [ACTIVE STAFF] - Follow up in 1 week
--- NOTE | 2018-09-25 20:47 | RADIOLOGY REPORT (SQ) ---
3 VIEWS OF THE LEFT HAND HISTORY: Joint pain. COMPARISON: None. FINDINGS: No acute fracture is seen. The joint spaces are preserved. The soft tissues are mildly swollen. IMPRESSION: No acute fracture or dislocation.
[2018-09-25 21:22] VITALS: BP 133/89
== END 2018-09-25 21:27 | disposition home or self-care (01) ==
LOC: ER 18:44
DX: S63.502A Unspecified sprain of left wrist, initial encounter (principal); M79.642 Pain in left hand; M25.532 Pain in left wrist; X58.XXXA Exposure to other specified factors, initial encounter; F17.200 Nicotine dependence, unspecified, uncomplicated; I10 Essential (primary) hypertension; E11.9 Type 2 diabetes mellitus without complications; J45.909 Unspecified asthma, uncomplicated
CPT/HCPCS: 99283; 73130; L3908

== ENCOUNTER 2018-10-27 16:03 | Emergency (ER) | payer SELFPAY ==
--- NOTE | 2018-10-27 16:31 | ER Document Report ---
ED Medical Screen (RME) - General Chief Complaint: Allergic Reaction Stated Complaint: POSSIBLE ALLERGIC REACTION Time Seen by Provider: 10/27/18 16:29 Primary Care Provider: LAUREEN ACEVEDO DO [Primary Care Provider] - Follow up as needed Notes: Patient thinks she is having allergic reaction at the site where she had a tattoo placed on her proximal left lower leg on October 18. She says that it started swelling and painful and draining fluid Chap[place], 2 days ago. She described it as "running pus". It is swollen and painful. She has been rinsing the wound with alcohol and applying Neosporin ointment. Patient is a NIDDM who is known to be allergic to aspirin, sulfa, and penicillin. Patient says the tattoo dye may have contained sulfa. TRAVEL OUTSIDE OF THE [place] IN LAST 30 DAYS: No - Related Data Allergies/Adverse Reactions: Penicillins Allergy (Intermediate, Verified 09/25/18 18:47) rash aspirin [Aspirin] Allergy (Verified 09/25/18 18:47) Sulfa (Sulfonamide Antibiotics) Allergy (Verified 09/25/18 18:47) Past Medical History - Past Medical History Cardiac Medical History: Reports: Hx Hypertension Pulmonary Medical History: Reports: Hx Asthma, Hx Bronchitis Endocrine Medical History: Reports: Hx Diabetes Mellitus Type 2 Renal/ Medical History: Reports: Hx Pelvic Inflammatory Disease. Denies: Hx Peritoneal Dialysis Musculoskeltal Medical History: Reports Hx Musculoskeletal Deformity, Reports Hx Musculoskeletal Trauma Skin Medical History: Reports Hx Cellulitis Traumatic Medical History: Reports: Hx Fractures - toes Past Surgical History: Reports: Hx Breast Surgery - cyst/abcess, 2009, Hx Section - 2, Hx Tubal Ligation - Immunizations Immunizations up to date: Yes Hx Diphtheria, Pertussis, Tetanus Vaccination: Yes - 2008 Physical Exam - Vital signs Vitals: Temp Pulse Resp BP Pulse Ox 99.2 F 91 20 119/81 100 10/27/18 16:20 10/27/18 16:20 10/27/18 16:20 10/27/18 16:20 10/27/18 16:20 Course - Vital Signs Vital signs: Temp Pulse Resp BP Pulse Ox 99.2 F 91 20 119/81 100 10/27/18 16:20 10/27/18 16:20 10/27/18 16:20 10/27/18 16:20 10/27/18 16:20 Doctor's Discharge - Discharge Referrals: LAUREEN ACEVEDO DO [Primary Care Provider] - Follow up as needed
--- NOTE | 2018-10-27 17:28 | ER Document Report ---
ED General - General Chief Complaint: Allergic Reaction Stated Complaint: POSSIBLE ALLERGIC REACTION Time Seen by Provider: 10/27/18 16:29 Primary Care Provider: LAUREEN ACEVEDO DO [Primary Care Provider] - Follow up as needed Notes: Patient is a 38-year-old female who presents to the emergency department with a chief complaint of an allergic reaction to tattoo ink. She received a tattoo 9 days ago and states that they used black light. She noticed some blisters, drainage, and ecchymosis to the area. The tattoo is on her left calf. She states that it is a throbbing pain that she feels. She took some Benadryl and Aleve last night to help with her symptoms, but has not taken any since. Her past medical history includes diabetes, asthma, environmental allergies, bronchitis, and a cyst removal from 1 of her breasts. TRAVEL OUTSIDE OF THE [place] IN LAST 30 DAYS: No - Related Data Allergies/Adverse Reactions: Penicillins Allergy (Intermediate, Verified 09/25/18 18:47) rash aspirin [Aspirin] Allergy (Verified 09/25/18 18:47) Sulfa (Sulfonamide Antibiotics) Allergy (Verified 09/25/18 18:47) Past Medical History - Social History Smoking Status: Current Every Day Smoker Family History: Reviewed & Not Pertinent, Arthritis, CAD, CVA, DM, Hyp erlipidemia, Hypertension, Malignancy, Thyroid Disfunction, Other - sister breast cancer, grandmother pancreatic Patient has suicidal ideation: No Patient has homicidal ideation: No - Past Medical History Cardiac Medical History: Reports: Hx Hypertension Pulmonary Medical History: Reports: Hx Asthma, Hx Bronchitis Endocrine Medical History: Reports: Hx Diabetes Mellitus Type 2 Renal/ Medical History: Reports: Hx Pelvic Inflammatory Disease. Denies: Hx Peritoneal Dialysis Musculoskeletal Medical History: Reports Hx Musculoskeletal Deformity, Reports Hx Musculoskeletal Trauma Skin Medical History: Reports Hx Cellulitis Traumatic Medical History: Reports: Hx Fractures - toes Past Surgical History: Reports: Hx Breast Surgery - cyst/abcess, 2009, Hx Section - 2, Hx Tubal Ligation - Immunizations Immunizations up to date: Yes Hx Diphtheria, Pertussis, Tetanus Vaccination: Yes - 2008 Review of Systems - Review of Systems Notes: REVIEW OF SYSTEMS: CONSTITUTIONAL : Denies recent illness. Denies recent unintentional weight loss. Denies fever, chills, or sweats. EENT: Denies eye, ear, throat, or mouth pain, discharge, or symptoms. Denies nasal or sinus congestion. CARDIOVASCULAR: Denies chest pain. RESPIRATORY: Denies shortness of breath, cough, congestion, difficulty breathing, or wheezing. GASTROINTESTINAL: Denies nausea, vomiting, and diarrhea. Denies abdominal pain. Denies constipation. GENITOURINARY: Denies difficulty urinating, burning, blood in urine, urgency or frequency. MUSCULOSKELETAL: Denies neck and back pain. Denies joint pain or swelling. SKIN: See HPI HEMATOLOGIC : Denies easy bruising or bleeding. LYMPHATIC: Denies swollen, painful, enlarged glands. NEUROLOGICAL: Denies no numbness or tingling denies weakness. Denies headache. Denies altered mental status. Denies alteration in speech. PSYCHIATRIC: Denies stress, anxiety, alteration in sleep patterns, or depression. All other systems reviewed and negative. Physical Exam - Vital signs Vitals: Temp Pulse Resp BP Pulse Ox 99.2 F 91 20 119/81 100 10/27/18 16:20 10/27/18 16:20 10/27/18 16:20 10/27/18 16:20 10/27/18 16:20 - Notes Notes: PHYSICAL EXAMINATION: GENERAL: Appears well, healthy, well-nourished, no acute distress. HEAD: Normocephalic, atraumatic. EYES: PERRL, conjunctiva normal, all extraocular movements intact, sclera nonicteric ENT: Moist mucous membranes. NECK: Supple, no noticeable swelling, redness, rash. Normal range of motion. LUNGS: Equal breath sounds bilaterally and clear to auscultation. No wheezes rales or rhonchi. CARDIOVASCULAR: S1-S2, regular rate, regular rhythm. Radial pulses 2+, normal. ABDOMEN: Normoactive bowel sounds. Soft, nontender, no guarding, no rebound tenderness, and no masses palpated. EXTREMITIES: Normal strength and range of motion, no pitting or edema. No cyanosis. NEUROLOGICAL: Moves all extremities upon command. Strength 5/5 in all extremities. PSYCH: Normal mood, normal affect. SKIN: Warm, dry. Burn noted to left calf at tattoo site. Course - Re-evaluation Re-evalutation: 10/27/18 17:29 Patient's physical exam is consistent with a burn from her tattoo. She will be started on Keflex for antibiotic treatment of cellulitis. She also be sent home with Neosporin plus pain relief for treatment of burn. Unfortunately she cannot take Silvadene because she is allergic to sulfa medications. She will be started on prednisone. She states that she has taken prednisone before with no complications. It has not raised her blood sugars in the past. She will follow-up with [facility] in regards to this visit. She is in agreement with this plan. She will follow-up with her primary care provider or the [facility]. Verbal discharge instructions were given to the patient. They verbalized understanding. They are stable for discharge. - Vital Signs Vital signs: Temp Pulse Resp BP Pulse Ox 98.2 F 96 20 122/66 94 10/27/18 17:57 10/27/18 17:57 10/27/18 17:57 10/27/18 17:57 10/27/18 17:57 Discharge - Discharge Clinical Impression: Burn Allergic reaction Qualifiers: Encounter type: initial encounter Qualified Code(s): T78.40XA - Allergy, unspe cified, initial encounter Cellulitis Qualifiers: Site of cellulitis: extremity Site of cellulitis of extremity: lower extremity Laterality: left Qualified Code(s): L03.116 - Cellulitis of left lower limb Condition: Stable Disposition: HOME, SELF-CARE Instructions: Dent ([facility]), Soap Cleansing ([facility]) Additional Instructions: You were seen today in the emergency department for an allergic reaction to a tattoo. You have been started on antibiotics. Please take all your antibiotics as prescribed. You have also been started on prednisone, a steroid medication to help with swelling and inflammation. You can take Benadryl as needed for any itching. You have also been prescribed Neosporin + pain relief to help with the burn from your tattoo. Please apply the medication to your tattoo area as prescribed, if you do not improve within the next 4-5 days, noticed the redness spreading, have worsening symptoms, or have any symptoms that are worrisome to you, please return to the emergency department. Prescriptions: Clindamycin HCl [Cleocin 150 mg Capsule] 300 mg PO Q6 7 Days #56 capsule Neomycin/Polymyxin B/Pramoxine [Antibiotic Plus Pain Relief Cr] 28 gm TP TID #1 cream..g. Prednisone [Deltasone 20 mg Tablet] 3 tab PO DAILY 5 Days #15 tablet Forms: Return to Work Referrals: LAUREEN ACEVEDO DO [Primary Care Provider] - Follow up as needed
[2018-10-27] MEDS ORDERED: CLINDAMYCIN HCL 150 MG CAPSULE PO ONE (17:59)
[2018-10-27] MEDS ORDERED: PREDNISONE 20 MG TABLET PO ONE (17:59)
[2018-10-27 18:08] VITALS: BP 122/66
== END 2018-10-27 18:09 | disposition home or self-care (01) ==
LOC: ER 16:03
DX: L03.116 Cellulitis of left lower limb (principal); T24.032A Burn of unspecified degree of left lower leg, initial encounter; X08.8XXA Exposure to other specified smoke, fire and flames, initial encounter; T78.40XA Allergy, unspecified, initial encounter; X58.XXXA Exposure to other specified factors, initial encounter; F17.200 Nicotine dependence, unspecified, uncomplicated; I10 Essential (primary) hypertension; E11.9 Type 2 diabetes mellitus without complications; Z88.0 Allergy status to penicillin; Z88.6 Allergy status to analgesic agent; Z88.2 Allergy status to sulfonamides; Z98.51 Tubal ligation status
CPT/HCPCS: 99283; J7512

== ENCOUNTER 2019-05-29 18:18 | Emergency (ER) | payer SELFPAY ==
[2019-05-29 18:27] VITALS: BP 137/80
[2019-05-29 19:24] LABS: APPEARANCE,URINE SLIGHTLY-CLOUDY; BILIRUBIN,URINE NEGATIVE (NEGATIVE); COLOR,URINE YELLOW; GLUCOSE, URINE >=500 mg/dL (NEGATIVE); KETONES,URINE NEGATIVE (NEGATIVE); PROTEIN,URINE NEGATIVE (NEGATIVE); URINE SPECIFIC GRAVITY 1.037; UROBILINOGEN,URINE NEGATIVE mg/dL (<2.0)
[2019-05-29 19:29] LABS: BACTERIA (WET MOUNT) 4+ BACTERIA SEEN; EPITHELIALS (WET MOUNT) 3+ EPITHELIALS SEEN; T.VAGINALIS (WET MOUNT) TRICHOMONAS SEEN; WBCS (WET MOUNT) 2+ WBCS SEEN; YEAST (WET MOUNT) NO YEAST SEEN
[2019-05-29] MEDS ORDERED: CEFTRIAXONE INJ 250 MG VIAL IM ONE (19:49)
[2019-05-29] MEDS ORDERED: LIDOCAINE 1% INJ-PF (10 MG/ML) 30 ML SDV IM ONE (19:49)
[2019-05-29] MEDS ORDERED: AZITHROMYCIN 250 MG TABLET PO ONE (19:53)
[2019-05-29] MEDS ORDERED: METRONIDAZOLE 500 MG TABLET PO ONE (19:53)
--- NOTE | 2019-05-29 20:02 | ER Document Report ---
HPI - HPI Time Seen by Provider: 05/29/19 18:52 Pain Level: 5 Notes: Patient is an otherwise healthy 39-year-old female presenting to the emergency department with concern for sexually transmitted disease. Patient reports she has been having burning with urination and her boyfriend called her today to tell her that he tested positive for trichomonas. Patient denies any abnormal vaginal discharge, she denies any pelvic pain. - CONSTITUTIONAL Constitutional: DENIES: Fever, Chills - EENT EENT: DENIES: Sore Throat, Ear Pain, Eye problems - NEURO Neurology: DENIES: Headache, Weakness, Vision blurred, Dizzinesss / Vertigo - CARDIOVASCULAR Cardiovascular: DENIES: Chest pain - RESPIRATORY Respiratory: DENIES: Trouble Breathing, Coughing - GASTROINTESTINAL Gastrointestinal: REPORTS: Abdominal Pain. DENIES: Black / Bloody Stools - URINARY Urinary: REPORTS: Dysuria. DENIES: Urgency, Frequency - REPRODUCTIVE Reproductive: DENIES: : - MUSCULOSKELETAL Musculoskeletal: DENIES: Extremity pain Past Medical History - General Information source: Patient - Social History Smoking Status: Current Every Day Smoker Chew tobacco use (# tins/day): No Frequency of alcohol use: Social Drug Abuse: None Family History: Reviewed & Not Pertinent, Arthritis, CAD, CVA, DM, Hyperlipidemia, Hypertension, Malignancy, Thyroid Disfunction, Other - sister breast cancer, grandmother pancreatic Patient has suicidal ideation: No Patient has homicidal ideation: No - Past Medical History Cardiac Medical History: Reports: Hx Hypertension Pulmonary Medical History: Reports: Hx Asthma, Hx Bronchitis Endocrine Medical History: Reports: Hx Diabetes Mellitus Type 2 Renal/ Medical History: Reports: Hx Pelvic Inflammatory Disease. Denies: Hx Peritoneal Dialysis Musculoskeletal Medical History: Reports Hx Musculoskeletal Deformity, Reports Hx Musculoskeletal Trauma Skin Medical History: Reports Hx Cellulitis Traumatic Medical History: Reports: Hx Fractures - toes Past Surgical History: Reports: Hx Breast Surgery - cyst/abcess, 2009, Hx Section - 2, Hx Tubal Ligation - Immunizations Immunizations up to date: Yes Hx Diphtheria, Pertussis, Tetanus Vaccination: Yes - 2009 Vertical Provider Document - CONSTITUTIONAL Notes: PHYSICAL EXAMINATION: GENERAL: Well-appearing, well-nourished and in no acute distress. HEAD: Atraumatic, normocephalic. EYES: Pupils equal round and reactive to light, extraocular movements intact, conjunctiva are normal. ENT: Nares patent, oropharynx clear without exudates. Moist mucous membranes. NECK: Normal range of motion, supple without lymphadenopathy LUNGS: Breath sounds clear to auscultation bilaterally and equal. No wheezes rales or rhonchi. HEART: Regular rate and rhythm without murmurs ABDOMEN: Soft, nontender, nondistended abdomen. No guarding, no rebound. No masses appreciated. Female : Normal external genitalia, no cervical motion tenderness or adnexal tenderness. Small amount of white discharge noted at the cervix. Musculoskeletal: Normal range of motion, no pitting or edema. No cyanosis. NEUROLOGICAL: Cranial nerves grossly intact. Normal speech, normal gait. Normal sensory, motor exams PSYCH: Normal mood, normal affect. SKIN: Warm, Dry, normal turgor, no rashes or lesions noted. - INFECTION CONTROL TRAVEL OUTSIDE OF THE [place] IN LAST 30 DAYS: No Course - Re-evaluation Re-evalutation: Laboratory 05/29/19 05/29/19 05/29/19 18:55 18:55 18:55 Urine Color YELLOW Urine Appearance SLIGHTLY-CLOUDY Urine pH 6.0 Ur Specific [place] 1.037 Urine Protein NEGATIVE Urine Glucose (UA) >=500 H Urine Ketones NEGATIVE Urine Blood NEGATIVE Urine Nitrite (Reflex) NEGATIVE Urine Bilirubin NEGATIVE Urine Urobilinogen NEGATIVE Leukocyte Esterase Rfl SMALL H Urine RBC (Auto) 3 Urine Bacteria (Auto) TRACE Urine WBC (Reflex) 20 Squamous Epi Cells Auto 3 Urine Ascorbic Acid NEGATIVE Epi Cells (Wet Prep) 3+ EPITHELIALS SEEN Bacteria (Wet Prep) 4+ BACTERIA SEEN Trichomonas (Wet Prep) TRICHOMONAS SEEN Vaginal WBC 2+ WBCS SEEN Vaginal Yeast NO YEAST SEEN Chlamydia DNA (PCR) NOT DETECTED N.gonorrhoeae DNA (PCR) NOT DETECTED - Vital Signs Vital signs: Temp Pulse Resp BP Pulse Ox 98.2 F 86 20 137/80 H 100 05/29/19 18:25 05/29/19 18:25 05/29/19 18:25 05/29/19 18:25 05/29/19 18:25 - Laboratory Laboratory results interpreted by me: 05/29/19 18:55 Urine Glucose (UA) >=500 H Leukocyte Esterase Rfl SMALL H Discharge - Discharge Clinical Impression: Trichomonal infection, Bacterial vaginosis Condition: Stable Disposition: HOME, SELF-CARE Additional Instructions: Trichomonas Infection Trichomoniasis is infection of the vagina or male genital tract with Trichomonas vaginalis. It can be asymptomatic or cause urethritis, vaginitis, or occasionally cystitis, epididymitis, or prostatitis. Diagnosis is by microscopic examination of vaginal or prostatic secretions or by urethral culture. Patients and sex partners are treated with metronidazole. T. vaginalis is a flagellated, sexually transmitted protozoan that more often infects women (about 20% of women of reproductive age) than men. Infection may be asymptomatic in either sex, but asymptomatic is the rule for men. In men, protozoa may persist for long periods in the tract without causing symptoms; thus, protozoa may be transmitted unwittingly to sex partners. Trichomoniasis may account for up to 5% of nongonococcal, nonchlamydial urethritis in men in some areas. Co-infection with gonorrhea and other sexually transmitted diseases (STDs) is common. In women, symptoms range from none to copious, yellow-green, frothy vaginal discharge with soreness of the vulva and perineum, dyspareunia, and dysuria. Asymptomatic infection may become symptomatic at any time as the vulva and perineum become inflamed and edema develops in the labia. The vaginal jo and surface of the cervix may have punctate, red "strawberry" spots. Urethritis and possibly cystitis may also occur. Men are usually asymptomatic; however, sometimes urethritis results in a discharge that may be transient, frothy, or purulent or that causes dysuria and frequency, usually early in the morning. Often, urethritis is mild and causes only minimal urethral irritation and occasional moisture at the urethral meatus, under the foreskin, or both. Epididymitis and prostatitis are rare complications. Trichomoniasis is suspected in women with vaginitis, in men with urethritis, and in their sex partners. Suspicion is high if symptoms persist after patients have been evaluated and treated for other infections such as gonorrhea and chlamydial, mycoplasmal, and ureaplasmal infections. In women, diagnosis is based on clinical criteria and in-office testing. The saline wet mount is examined microscopically as soon as possible to detect trichomonads.In men, microscopy of urine is insensitive, although occasionally organisms are visible in a first-voided morning specimen or a centrifuged specimen. Cultures of urine and urethral swabs are more sensitive. As with diagnosis of any STD, patients with trichomoniasis should be tested to exclude other common STDs such as gonorrhea and chlamydial infection. Metronidazole or tinidazole 2 g po in a single dose cures up to 95% of women if sex partners are treated simultaneously. Effectiveness of single-dose regimens in men is not as clear, so treatment is typically with metronidazole or tinidazole 500 mg bid for 5 to 7 days. Sex partners should be screened and treated for trichomoniasis and other STDs. If poor adherence to follow-up is likely, treatment can be initiated in sex partners of patients with documented trichomoniasis without confirming the diagnosis in the partner. You also have an overgrowth of vaginal bacteria, called bacterial vaginosis. this may be caused by the trichomonas infection. You are being treated with an antibiotic called metronidazole. Do not drink alcohol while taking this medication. Complete all of the antibiotic even if your symptoms have resolved. Return for abdominal pain, vomiting, fever of greater than 101F, or any other symptoms that are worrisome to you. Please follow-up with your [employer] or primary care doctor as needed. Prescriptions: Metronidazole [Flagyl 500 mg Tablet] 500 mg PO BID #14 tablet Referrals: LAUREEN ACEVEDO DO [Primary Care Provider] - Follow up as needed
[2019-05-29 20:55] LABS: CHLAM PCR NOT DETECTED (NOT DETECT)
== END 2019-05-29 20:15 | disposition home or self-care (01) ==
LOC: ER 18:18
DX: A59.00 Urogenital trichomoniasis, unspecified (principal); N76.0 Acute vaginitis; B96.89 Other specified bacterial agents as the cause of diseases classified elsewhere; F17.200 Nicotine dependence, unspecified, uncomplicated; I10 Essential (primary) hypertension; E11.9 Type 2 diabetes mellitus without complications; Z98.51 Tubal ligation status
CPT/HCPCS: 87086; 87210; 87088; 81001; 87186; 87491; 87591; J3490; J0696; 96372; 99283

== ENCOUNTER 2019-10-06 17:46 | Emergency (ER) | payer OTHER ==
[2019-10-06] MEDS ORDERED: OXYCODONE HCL IR 5 MG TABLET PO ONE (18:23)
[2019-10-06] MEDS ORDERED: METHOCARBAMOL 500 MG TABLET PO ONE (18:23)
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
[2019-10-06 21:39] VITALS: BP 128/80
== END 2019-10-06 21:35 | disposition home or self-care (01) ==
LOC: ER 17:46
DX: S16.1XXA Strain of muscle, fascia and tendon at neck level, initial encounter (principal); S93.402A Sprain of unspecified ligament of left ankle, initial encounter; V89.2XXA Person injured in unspecified motor-vehicle accident, traffic, initial encounter; F17.210 Nicotine dependence, cigarettes, uncomplicated; I10 Essential (primary) hypertension; E11.9 Type 2 diabetes mellitus without complications; Z88.0 Allergy status to penicillin; Z88.6 Allergy status to analgesic agent; Z88.2 Allergy status to sulfonamides; Z98.51 Tubal ligation status
CPT/HCPCS: 71046; 72125; 72170; 99284

== ENCOUNTER 2019-12-20 12:28 | Emergency (ER) | payer MEDICAID, OTHER ==
--- NOTE | 2019-12-20 12:50 | ER Document Report ---
ED Medical Screen (RME) - General Chief Complaint: Urinary Problem Stated Complaint: URINARY ISSUE Time Seen by Provider: 12/20/19 12:46 Primary Care Provider: LAUREEN ACEVEDO DO [Primary Care Provider] - Follow up as needed Mode of Arrival: Ambulatory Information source: Patient Notes: 39-year-old female with history of asthma diabetes presents to the emergency department with complaints of burning with void urinary frequency and vaginal irritation. Reports vaginal irritation started over a week ago. She thought she had a yeast infection so she treated herself with Monistat 7 days. She finished that on Sunday. Now she is having the vaginal irritation and urinary symptoms. She reports she is sexually active with one partner no protection but is not worried about STD. Reports no vaginal discharge. No other complaints such as fever vomiting diarrhea. I have greeted and performed a rapid initial assessment of this patient. A comprehensive ED assessment and evaluation of the patient, analysis of test results and completion of the medical decision making process will be conducted by additional ED providers. TRAVEL OUTSIDE OF THE [place] IN LAST 30 DAYS: No - Related Data Allergies/Adverse Reactions: Penicillins Allergy (Intermediate, Verified 05/29/19 18:47) rash aspirin [Aspirin] Allergy (Verified 05/29/19 18:47) Sulfa (Sulfonamide Antibiotics) Allergy (Verified 05/29/19 18:47) Past Medical History - Past Medical History Cardiac Medical History: Reports: Hx Hypertension Pulmonary Medical History: Reports: Hx Asthma, Hx Bronchitis Endocrine Medical History: Reports: Hx Diabetes Mellitus Type 2 Renal/ Medical History: Reports: Hx Pelvic Inflammatory Disease. Denies: Hx Peritoneal Dialysis GI Medical History: Reports: Hx Gastroesophageal Reflux Disease Musculoskeltal Medical History: Reports Hx Musculoskeletal Deformity, Reports Hx Musculoskeletal Trauma Skin Medical History: Reports Hx Cellulitis Traumatic Medical History: Reports: Hx Fractures - toes Past Surgical History: Reports: Hx Breast Surgery - cyst/abcess, 2009, Hx Section - 2, Hx Tubal Ligation - Immunizations Immunizations up to date: Yes Hx Diphtheria, Pertussis, Tetanus Vaccination: Yes - 2008 Physical Exam - Vital signs Vitals: Temp Pulse Resp BP Pulse Ox 98.7 F 98 16 123/81 99 12/20/19 12:32 12/20/19 12:32 12/20/19 12:32 12/20/19 12:32 12/20/19 12:32 Course - Vital Signs Vital signs: Temp Pulse Resp BP Pulse Ox 98.7 F 98 16 123/81 99 12/20/19 12:32 12/20/19 12:32 12/20/19 12:32 12/20/19 12:32 12/20/19 12:32 Doctor's Discharge - Discharge Referrals: LAUREEN ACEVEDO DO [Primary Care Provider] - Follow up as needed
--- NOTE | 2019-12-20 13:20 | ER Document Report ---
ED GI/ - General Chief Complaint: Urinary Frequency Stated Complaint: URINARY ISSUE Time Seen by Provider: 12/20/19 12:46 Primary Care Provider: LAUREEN ACEVEDO DO [NO LOCAL MD] - Follow up as needed Mode of Arrival: Ambulatory Information source: Patient Notes: 39-year-old female past medical history significant for diabetes, asthma, allergies presents to the emergency room complaining of dysuria x4 days, vaginal itching for the past 10 days. Patient states she self treated herself with Monistat 7 she finished that on Sunday without relief of symptoms. History of recurrent yeast infection secondary to uncontrolled diabetes. Denies fevers, no nausea, no vomiting, denies any vaginal bleeding, denies any vaginal discharge. TRAVEL OUTSIDE OF THE [place] IN LAST 30 DAYS: No - Related Data Allergies/Adverse Reactions: Penicillins Allergy (Intermediate, Verified 05/29/19 18:47) rash aspirin [Aspirin] Allergy (Verified 05/29/19 18:47) Sulfa (Sulfonamide Antibiotics) Allergy (Verified 05/29/19 18:47) Past Medical History - General Information source: Patient - Social History Smoking Status: Current Every Day Smoker Chew tobacco use (# tins/day): No Frequency of alcohol use: Occasional Drug Abuse: None Lives with: Family Family History: Arthritis, CAD, CVA, DM, Hyperlipidemia, Hypertension, Malignancy, Thyroid Disfunction, Other - sister breast cancer, grandmother pancreatic Patient has homicidal ideation: No Pulmonary Medical History: Reports: Hx Asthma, Hx Bronchitis Endocrine Medical History: Reports: Hx Diabetes Mellitus Type 2 Renal/ Medical History: Reports: Hx Pelvic Inflammatory Disease. Denies: Hx Peritoneal Dialysis GI Medical History: Reports: Hx Gastroesophageal Reflux Disease Musculoskeletal Medical History: Reports Hx Musculoskeletal Deformity, Reports Hx Musculoskeletal Trauma Skin Medical History: Reports Hx Cellulitis Traumatic Medical History: Reports: Hx Fractures - toes Past Surgical History: Reports: Hx Breast Surgery - cyst/abcess, 2009, Hx Section - 2, Hx Tubal Ligation - Immunizations Immunizations up to date: Yes Hx Diphtheria, Pertussis, Tetanus Vaccination: Yes - 2009 Review of Systems - Review of Systems Constitutional: No symptoms reported Cardiovascular: No symptoms reported Respiratory: No symptoms reported Gastrointestinal: Abdominal pain - left lower quadrant pelvic pain Genitourinary: Dysuria. denies: Frequency, Flank pain, Hematuria Female Genitourinary: Other - Vaginal itching Skin: No symptoms reported -: Yes All other systems reviewed and negative Physical Exam - Vital signs Vitals: Temp 97.2 F 12/20/19 12:28 - General General appearance: Appears well, Alert In distress: None - HEENT Head: Normocephalic, Atraumatic Eyes: Normal Pupils: PERRL - Respiratory Respiratory status: No respiratory distress Chest status: Nontender Breath sounds: Normal Chest palpation: Normal - Cardiovascular Rhythm: Regular Heart sounds: Normal auscultation Murmur: No - Abdominal Inspection: Normal Distension: No distension Bowel sounds: Normal Tenderness: Tender - tender to palpation to left lower quadrant. Organomegaly: No organomegaly - Genitourinary External exam: Normal Speculum exam: Normal, Cervix closed, Vaginal discharge - minimal amount thick white cheesy discharge Vaginal bleeding: None Bimanuel exam: Adnexal tenderness - left adnexal tenderness. No: Cervical motion tender, Uterus enlarged - Back Back: Normal, Nontender. No: CVA tenderness - Neurological Neuro grossly intact: Yes Cognition: Normal Orientation: AAOx4 Loly Coma Scale Eye Opening: Spontaneous [place] Coma Scale Verbal: Oriented Loly Coma Scale Motor: Obeys Commands [place] Coma Scale Total: 15 Speech: Normal Motor strength normal: LUE, RUE, LLE, RLE Sensory: Normal - Skin Skin Temperature: Warm Skin Moisture: Dry Skin Color: Normal Course - Re-evaluation Re-evalutation: 12/20/19 15:48 Patient is resting comfortably she is currently pain-free on exam. Reviewed lab and ultrasound results with patient. Counseled to take Tylenol and or Motrin as needed for pain. Use topical cream as prescribed. Outpatient follow-up with a primary care physician and/or the [facility] as discussed for management of her chronic diabetes and recurrent yeast infections. She was given strict return to the emergency room guidelines. Return for any new or worsening symptoms. All questions were answered. Patient verbalized understanding and agrees with plan of care. 12/20/19 17:11 - Vital Signs Vital signs: Temp Pulse Resp BP Pulse Ox 98.3 F 81 16 118/74 100 12/20/19 15:46 12/20/19 15:46 12/20/19 15:46 12/20/19 15:46 12/20/19 15:46 - Laboratory Result Diagrams: 12/20/19 14:57 12/20/19 14:57 Laboratory results interpreted by me: 12/20/19 12/20/19 12/20/19 12:55 14:57 14:57 RDW 14.1 H Sodium 135.8 L Anion Gap 3 L Creatinine 0.47 L Glucose 236 H AST 12 L Total Protein 6.1 L Urine Glucose (UA) >=500 H Urine Urobilinogen 2.0 H Ur Leukocyte Esterase SMALL H Urine Ascorbic Acid 20 H - Diagnostic Test Radiology reviewed: Reports reviewed Discharge - Discharge Clinical Impression: Pelvic pain, Candidiasis Condition: Stable Disposition: HOME, SELF-CARE Instructions: Vaginal Yeast Infection ([facility]) Additional Instructions: And Motrin as needed for pain. Monitor your diet. Patient follow-up with [facility] primary care physician or the clinic as discussed. Use topical cream as prescribed. Return for any new or worsening symptoms. Prescriptions: Nystatin [Mycostatin Cream 15 gm] 1 applic TP BID #15 gm Referrals: LAUREEN ACEVEDO DO [NO LOCAL MD] - Follow up as needed
[2019-12-20 13:22] LABS: APPEARANCE,URINE SLIGHTLY-CLOUDY; BILIRUBIN,URINE NEGATIVE (NEGATIVE); COLOR,URINE YELLOW; GLUCOSE, URINE >=500 mg/dL (NEGATIVE); KETONES,URINE NEGATIVE (NEGATIVE); LEUKOCYTE ESTERASE,URINE SMALL (NEGATIVE); NITRITE,URINE NEGATIVE (NEGATIVE); PROTEIN,URINE NEGATIVE (NEGATIVE); URINE SPECIFIC GRAVITY 1.024
[2019-12-20 15:03] LABS: T.VAGINALIS (WET MOUNT) NO TRICHOMONAS SEEN; WBCS (WET MOUNT) NO WBCS SEEN; YEAST (WET MOUNT) NO YEAST SEEN
[2019-12-20] MEDS ORDERED: RINGERS SOLUTION,LACTATED 1,000 ML IV ONE (15:04)
[2019-12-20 15:14] LABS: ABSOLUTE BASOPHILS # (AUTO) 0.1 10^3/uL (0.0-0.2); ABSOLUTE EOSINOPHILS # (AUTO) 0.3 10^3/uL (0.0-0.6); ABSOLUTE LYMPHOCYTES (AUTO) 2.8 10^3/uL (0.5-4.7); ABSOLUTE MONOCYTES (AUTO) 0.4 10^3/uL (0.1-1.4); ABSOLUTE NEUT (AUTO) 4.3 10^3/uL (1.7-8.2); BASOPHILS % (AUTO) 1.3 % (0-2); EOSINOPHILS % (AUTO) 3.5 % (0-6); HEMATOCRIT 37.6 % (36.0-47.0); LYMPHOCYTES % (AUTO) 35.6 % (13-45); MEAN CORPUSCULAR HEMOGLOBIN 29.9 pg (27.0-33.4); MEAN CORPUSCULAR HGB CONC 34.5 g/dL (32.0-36.0); MEAN CORPUSCULAR VOLUME 87 fl (80-97); PLATELET COUNT 272 10^3/uL (150-450); RED BLOOD COUNT 4.33 10^6/uL (3.72-5.28); RED CELL DISTRIBUTION WIDTH 14.1 % (11.5-14.0); SEGMENTED NEUTROPHILS % (AUTO) 54.6 % (42-78); TOTAL CELLS COUNTED % (AUTO) 100 %; WHITE BLOOD COUNT 7.9 10^3/uL (4.0-10.5)
[2019-12-20 15:30] LABS: ALBUMIN 3.5 g/dL (3.5-5.0); ALKALINE PHOSPHATASE 65 U/L (38-126); ASPARTATE AMINO TRANSFERASE 12 U/L (14-36); BILIRUBIN,TOTAL 0.4 mg/dL (0.2-1.3); BLOOD UREA NITROGEN 9 mg/dL (7-20); CALCIUM 9.2 mg/dL (8.4-10.2); CHLORIDE 105 mmol/L (98-107); GLUCOSE 236 mg/dL (75-110); POTASSIUM 4.1 mmol/L (3.6-5.0); TOTAL PROTEIN 6.1 g/dL (6.3-8.2)
[2019-12-20 15:35] LABS: ANION GAP 3 (5-19); CARBON DIOXIDE 28 mmol/L (22-30)
--- NOTE | 2019-12-20 15:36 | RADIOLOGY REPORT (SQ) ---
EXAM DESCRIPTION: U/S NON OB PEL W/DOPPLER IMAGES COMPLETED DATE/TIME: 12/20/2019 3:23 pm REASON FOR STUDY: pelvic pain COMPARISON: None. TECHNIQUE: Dynamic and static grayscale images acquired of the pelvis via transabdominal approach an d recorded on PACS. Additional selected color Doppler and spectral images recorded. LIMITATIONS: None. FINDINGS: UTERUS: Contour normal. No mass. ENDOMETRIAL STRIPE: No focal or generalized thickening. No masses. CERVIX: No nabothian cysts. RIGHT OVARY AND DOPPLER: Ovary not visualized. LEFT OVARY AND DOPPLER: Normal size. Normal arterial vascular flow. No masses. FREE FLUID: None noted. OTHER: No other significant finding. MEASUREMENTS: UTERUS: 11 cm ENDOMETRIAL STRIPE: 7 mm RIGHT OVARY: Not visualized. LEFT OVARY: 4.1 cm IMPRESSION: Right ovary not visualized. Otherwise normal. TECHNICAL DOCUMENTATION: JOB ID: [id number] [employer]- All Rights Reserved Rev-12/28 Reading location - IP/workstation name: [email or web address]
[2019-12-20 15:48] VITALS: BP 118/74
[2019-12-20 16:31] LABS: CHLAM PCR NOT DETECTED (NOT DETECT)
== END 2019-12-20 16:04 | disposition home or self-care (01) ==
LOC: ER 12:28
DX: B37.9 Candidiasis, unspecified (principal); E11.9 Type 2 diabetes mellitus without complications; R30.0 Dysuria; J45.909 Unspecified asthma, uncomplicated; R10.32 Left lower quadrant pain; R10.814 Left lower quadrant abdominal tenderness; R10.2 Pelvic and perineal pain; Z88.0 Allergy status to penicillin; F17.200 Nicotine dependence, unspecified, uncomplicated; Z88.8 Allergy status to other drugs, medicaments and biological substances; Z88.2 Allergy status to sulfonamides
CPT/HCPCS: 36415; 76856; 80053; 81001; 81025; 85025; 87210; 87491; 87591; 93976; 99284

== ENCOUNTER 2020-04-27 16:48 | Emergency (ER) | payer SELFPAY ==
[2020-04-27] MEDS ORDERED: METHOCARBAMOL 500 MG TABLET PO ONE (17:23)
--- NOTE | 2020-04-27 17:25 | ER Document Report ---
ED Extremity Problem, Upper - General Chief Complaint: Shoulder Pain Stated Complaint: ARM PAIN Time Seen by Provider: 04/27/20 17:19 Notes: Patient is a 40-year-old female who presents emergency department with a chief complaint of left upper extremity and left lower extremity pain and "knots" in her leg and in her shoulder/arm. Patient states that she noticed them recently. Patient is a smoker. She has a history of asthma and allergies. Denies any injury. Denies any shortness of breath or difficulty breathing. TRAVEL OUTSIDE OF THE [place] IN LAST 30 DAYS: No - Related Data Allergies/Adverse Reactions: Penicillins Allergy (Intermediate, Verified 04/27/20 17:16) rash aspirin [Aspirin] Allergy (Verified 04/27/20 17:16) Sulfa (Sulfonamide Antibiotics) Allergy (Verified 04/27/20 17:16) Past Medical History - General Information source: Patient - Social History Smoking Status: Current Every Day Smoker Chew tobacco use (# tins/day): No Frequency of alcohol use: Social Drug Abuse: None Family History: Arthritis, CAD, CVA, DM, Hyperlipidemia, Hypertension, Malignancy, Thyroid Disfunction, Other - sister breast cancer, grandmother pancreatic Patient has homicidal ideation: No - Past Medical History Cardiac Medical History: Reports: Hx Hypertension Pulmonary Medical History: Reports: Hx Asthma, Hx Bronchitis Endocrine Medical History: Reports: Hx Diabetes Mellitus Type 2 Renal/ Medical History: Reports: Hx Pelvic Inflammatory Disease. Denies: Hx Peritoneal Dialysis GI Medical History: Reports: Hx Gastroesophageal Reflux Disease Musculoskeletal Medical History: Reports Hx Musculoskeletal Deformity, Reports Hx Musculoskeletal Trauma Skin Medical History: Reports Hx Cellulitis Traumatic Medical History: Reports: Hx Fractures - toes Past Surgical History: Reports: Hx Breast Surgery - cyst/abcess, 2009, Hx Section - 2, Hx Tubal Ligation - Immunizations Immunizations up to date: Yes Hx Diphtheria, Pertussis, Tetanus Vaccination: Yes - 2008 Review of Systems - Review of Systems Notes: REVIEW OF SYSTEMS: CONSTITUTIONAL : Denies recent illness. Denies recent unintentional weight loss. Denies fever, chills, or sweats. EENT: Denies eye, ear, throat, or mouth pain, discharge, or symptoms. Denies nasal or sinus congestion. CARDIOVASCULAR: Denies chest pain. RESPIRATORY: Denies shortness of breath, cough, congestion, difficulty breathing, or wheezing. GASTROINTESTINAL: Denies nausea, vomiting, and diarrhea. Denies abdominal pain. Denies constipation. GENITOURINARY: Denies difficulty urinating, burning, blood in urine, urgency or frequency. MUSCULOSKELETAL: Denies neck and back pain. See HPI. SKIN: Denies rash, itchiness, or lesions HEMATOLOGIC : Denies easy bruising or bleeding. LYMPHATIC: Denies swollen, painful, enlarged glands. NEUROLOGICAL: Denies no numbness or tingling denies weakness. Denies headache. Denies altered mental status. Denies alteration in speech. PSYCHIATRIC: Denies stress, anxiety, alteration in sleep patterns, or depression. All other systems reviewed and negative. Physical Exam - Vital signs Vitals: Temp Pulse Resp BP Pulse Ox 98.6 F 83 16 138/87 H 100 04/27/20 16:58 04/27/20 16:58 04/27/20 16:58 04/27/20 16:58 04/27/20 16:58 - Notes Notes: PHYSICAL EXAMINATION: GENERAL: Appears well, healthy, well-nourished, no acute distress. HEAD: Normocephalic, atraumatic. EYES: PERRL, conjunctiva normal, all extraocular movements intact, sclera nonicteric ENT: Moist mucous membranes. NECK: Supple, no noticeable swelling, redness, rash. Normal range of motion. LUNGS: Equal breath sounds bilaterally and clear to auscultation. No wheezes rales or rhonchi. CARDIOVASCULAR: S1-S2, regular rate, regular rhythm. Radial pulses 2+, normal. ABDOMEN: Normoactive bowel sounds. Soft, nontender, no guarding, no rebound tenderness, and no masses palpated. EXTREMITIES: Normal strength and range of motion, no pitting or edema. No cyanosis. Tenderness noted to left trapezius muscle, left gastrocnemius area, and left tricep muscle. NEUROLOGICAL: Moves all extremities upon command. Strength 5/5 in all extremities. PSYCH: Normal mood, normal affect. SKIN: Warm, dry. No rash, lesions, ulcerations noted. Normal skin turgor. Course - Re-evaluation Re-evalutation: 04/27/20 19:00 Venous Doppler studies are unremarkable. We will start patient on Robaxin. Patient is to follow-up with primary care provider. Follow-up precautions were given. Verbal discharge instructions were given to the patient. They verbalized understanding. They are stable for discharge. - Vital Signs Vital signs: Temp Pulse Resp BP Pulse Ox 98.6 F 83 16 138/87 H 100 04/27/20 16:58 04/27/20 16:58 04/27/20 16:58 04/27/20 16:58 04/27/20 16:58 Discharge - Discharge Clinical Impression: Leg pain, left, Left arm pain Condition: Stable Disposition: HOME, SELF-CARE Additional Instructions: You were seen today in the emergency department for leg pain and arm pain. T here are no blood clots in your arm or in your leg. Stop smoking, because smoking puts you at risk for blood clots. Take Robaxin as needed and follow-up with a primary care provider regards to this visit. Prescriptions: Methocarbamol [Robaxin 750 mg Tablet] 750 mg PO ASDIR PRN #40 tablet PRN Reason:
--- NOTE | 2020-04-27 18:58 | RADIOLOGY REPORT (SQ) ---
EXAM DESCRIPTION: VENOUS UNILATERAL LOWER IMAGES COMPLETED DATE/TIME: 04/27/2020 6:41 pm REASON FOR STUDY: LLE pain COMPARISON: None. TECHNIQUE: Dynamic and static cantrell scale and color images acquired of the left leg venous system. Se lected spectral images acquired with additional compression and augmentation maneuvers. The contralat eral common femoral vein and saphenofemoral junction were also imaged. Images stored on PACS. LIMITATIONS: None. FINDINGS: COMMON FEMORAL: Normal phasicity, compression and augmentation. No visualized echogenic ma terial on cantrell scale. No defects on color images. FEMORAL: Normal compression and augmentation. No visualized echogenic material on cantrell scale. No defe cts on color images. POPLITEAL: Normal compression, augmentation. No visualized echogenic material on cantrell scale. No defec ts on color images. CALF VESSELS: Normal compression, augmentation. No visualized echogenic material on cantrell scale. No de fects on color images. GSV and SSV: Normal compression, augmentation. No visualized echogenic material on cantrell scale. No def ects on color images. ANY DEEP VENOUS INSUFFICIENCY: Not evaluated. ANY EVIDENCE OF POPLITEAL CYST: No. OTHER: No other significant finding. CONTRALATERAL COMMON FEMORAL VEIN AND SAPHENOFEMORAL JUNCTION: Normal phasicity, compression and augmentation. No visualized echogenic material on cantrell scale. No de fects on color images. IMPRESSION: NO EVIDENCE DVT OR SVT IN THE LEFT LEG. TECHNICAL DOCUMENTATION: JOB ID: [id number] 2010 [employer]- All Rights Reserved Reading location - IP/workstation name: [email or web address]
--- NOTE | 2020-04-27 18:58 | RADIOLOGY REPORT (SQ) ---
EXAM DESCRIPTION: VENOUS UNILATERAL UPPER IMAGES COMPLETED DATE/TIME: 04/27/2020 6:41 pm REASON FOR STUDY: LUE pain COMPARISON: None. TECHNIQUE: Dynamic and static cantrell scale and color images acquired of the left arm venous system. Se lected spectral images acquired with additional compression and augmentation maneuvers. The contralat eral subclavian vein and internal jugular vein were also imaged. Images stored on PACS. LIMITATIONS: None. FINDINGS: INTERNAL JUGULAR VEIN: Normal phasicity, compression, augmentation. No visualized echogeni c material on cantrell scale. No defects on color images. Comparison opposite side normal. SUBCLAVIAN VEIN: Normal compression, augmentation. No visualized echogenic material on cantrell scale. No defects on color images. AXILLARY VEIN: Normal compression, augmentation. No visualized echogenic material on cantrell scale. No d efects on color images. BRACHIAL VEIN: Normal compression, augmentation. No visualized echogenic material on cantrell scale. No d efects on color images. BASILIC VEIN: Normal compression, augmentation. No visualized echogenic material on cantrell scale. No de fects on color images. CEPHALIC VEIN: Normal compression, augmentation. No visualized echogenic material on cantrell scale. No d efects on color images. OTHER: No other significant finding. CONTRALATERAL SUBCLAVIAN VEIN AND INTERNAL JUGULAR VEIN: Normal phasicity, compression and augmentation. No visualized echogenic material on cantrell scale. No de fects on color images. IMPRESSION: NO EVIDENCE DVT OR SVT IN THE LEFT ARM. TECHNICAL DOCUMENTATION: JOB ID: [id number] 2010 [employer]- All Rights Reserved Reading location - IP/workstation name: [email or web address]
[2020-04-27 19:29] VITALS: BP 135/86
== END 2020-04-27 19:27 | disposition home or self-care (01) ==
LOC: ER 16:48
DX: M79.602 Pain in left arm (principal); M79.605 Pain in left leg; F17.200 Nicotine dependence, unspecified, uncomplicated; I10 Essential (primary) hypertension; E11.9 Type 2 diabetes mellitus without complications; Z88.6 Allergy status to analgesic agent; Z88.0 Allergy status to penicillin
CPT/HCPCS: 93971; 99285

== ENCOUNTER 2020-08-11 21:46 | Emergency (ER) | payer SELFPAY ==
[2020-08-11 22:02] VITALS: BP 127/78
[2020-08-11] MEDS ORDERED: CLINDAMYCIN HCL 150 MG CAPSULE PO ONE (22:12)
[2020-08-11] MEDS ORDERED: FLUCONAZOLE 100 MG TABLET PO ONE (22:12)
--- NOTE | 2020-08-11 22:13 | ER Document Report ---
ED ENT - General Chief Complaint: Facial Swelling Stated Complaint: FACE SWELLING Time Seen by Provider: 08/11/20 22:07 Primary Care Provider: [facility] [Provider Group] - Follow up as needed Mode of Arrival: Ambulatory Information source: Patient Notes: Patient is a 40-year-old female comes emergency room complaining of left-sided facial swelling. Patient stated it started on Leonel she has tried to tough it out because she was working with it she got off the night went to the restaurant to eat with her boyfriend she was unable to chew because of the pain and discomfort and the swelling so he brought her to the emergency room. Patient states it on her back left molar she had a filling fall out and she believes that is gotten infected and causing swelling to her face. She denies any fever nausea or vomiting but she has had discomfort and pain in the swelling on the left maxillary area. Patient only has a past medical history pertinent for none insulin-dependent diabetes and asthma. She does admit to smoking cigarettes and drinking occasionally. TRAVEL OUTSIDE OF THE [place] IN LAST 30 DAYS: No - HPI Patient complains to provider of: Dental problem Onset: Other - 5 days Onset/Duration: Gradual, Persistent Quality of pain: Achy, Sharp Severity: Moderate Pain Level: 3 Location of pain: Face Associated symptoms: Congestion, Dental pain, Ear pain Similar symptoms previously: No Recently seen / treated by doctor: No - Related Data Allergies/Adverse Reactions: Penicillins Allergy (Intermediate, Verified 04/27/20 17:16) rash aspirin [Aspirin] Allergy (Verified 04/27/20 17:16) Sulfa (Sulfonamide Antibiotics) Allergy (Verified 04/27/20 17:16) Home Medications: albuterol. metformin Past Medical History - General Information source: Patient - Social History Smoking Status: Current Every Day Smoker Chew tobacco use (# tins/day): No Smoking Education Provided: Yes Frequency of alcohol use: Occasional Drug Abuse: None Family History: Arthritis, CAD, CVA, DM, Hyperlipidemia, Hypertension, Malignancy, Thyroid Disfunction, Other - sister breast cancer, grandmother pancreatic - Past Medical History Cardiac Medical History: Reports: Hx Hypertension Pulmonary Medical History: Reports: Hx Asthma, Hx Bronchitis Endocrine Medical History: Reports: Hx Diabetes Mellitus Type 2 Renal/ Medical History: Reports: Hx Pelvic Inflammatory Disease. Denies: Hx Peritoneal Dialysis GI Medical History: Reports: Hx Gastroesophageal Reflux Disease Musculoskeletal Medical History: Reports Hx Musculoskeletal Deformity, Reports Hx Musculoskeletal Trauma Skin Medical History: Reports Hx Cellulitis Traumatic Medical History: Reports: Hx Fractures - toes Past Surgical History: Reports: Hx Breast Surgery - cyst/abcess, 2009, Hx Section - 2, Hx Tubal Ligation - Immunizations Immunizations up to date: Yes Hx Diphtheria, Pertussis, Tetanus Vaccination: Yes - 2008 Review of Systems - Review of Systems Constitutional: No symptoms reported EENT: See HPI, Ear pain, Nose congestion, Dental problem Cardiovascular: No symptoms reported Respiratory: No symptoms reported Gastrointestinal: No symptoms reported Genitourinary: No symptoms reported Female Genitourinary: No symptoms reported Musculoskeletal: No symptoms reported Skin: No symptoms reported Hematologic/Lymphatic: No symptoms reported Neurological/Psychological: No symptoms reported -: Yes All other systems reviewed and negative Physical Exam - Vital signs Vitals: Temp Pulse Resp BP Pulse Ox 98.4 F 82 20 127/78 H 99 08/11/20 21:56 08/11/20 21:56 08/11/20 21:56 08/11/20 21:56 08/11/20 21:56 Interpretation: Normal - Notes Notes: PHYSICAL EXAMINATION: GENERAL: Well-appearing, well-nourished and in no acute distress. HEAD: , normocephalic. Examination patient's area concern is her left facial area around the maxillary sinus. There is noticeable difference between the left maxillary sinus area on the face as compared to the right. There is no palpable fluctuant area it is a little on the puffy side. Further investigation does not show any signs of abscess type formation. EYES: Pupils equal round and reactive to light, extraocular movements intact, conjunctiva are normal. ENT: Examination patient's oral cavity does show that there is multiple teeth that are missing there is 1 molar that appears to be missing a filling. And there are some mild erythema around the gum tooth line there. There is no overt abscess between the gum tooth line and the area of question on the maxillary sinus. Examination patient's nose does not show any obstruction on the left nare area. She does have some mild congestion on the left nare. Examination of the left ear does not show any abnormalities. NECK: Normal range of motion, supple without lymphadenopathy LUNGS: Breath sounds clear to auscultation bilaterally and equal. No wheezes rales or rhonchi. HEART: Regular rate and rhythm without murmurs Musculoskeletal: Normal range of motion, no pitting or edema. No cyanosis. NEUROLOGICAL:ct. Normal speech, normal gait. Normal sensory, motor exams PSYCH: Normal mood, normal affect. SKIN: Warm, Dry, normal turgor, no rashes or lesions noted. Course - Re-evaluation Re-evalutation: 08/11/20 22:10 Examination does not show any concerns for a abscess in the maxillofacial area. It appears to be a dental infection that is gotten some inflamed tissue only. Given that we will place her on some clindamycin and ibuprofen and some Diflucan and she will return to ER if there is any concerns of it worsening. - Vital Signs Vital signs: Temp Pulse Resp BP Pulse Ox 98.4 F 82 20 127/78 H 99 08/11/20 21:56 08/11/20 21:56 08/11/20 21:56 08/11/20 21:56 08/11/20 21:56 - Laboratory Results Critical Laboratory Results Reviewed: No Critical Results - Radiology Results Critical Radiology Results Reviewed: No Critical Results Discharge - Discharge Clinical Impression: Dental infection Condition: Stable Disposition: HOME, SELF-CARE Instructions: Dental Infection or Abscess ([facility]) Additional Instructions: Home and rest. Medications prescribed. Warm moist compresses should department helper with this discomfort is well. However should you have increased swelling that is not being controlled with Tylenol Motrin and the antibiotics return to ER and we will do a CT of the face. Prescriptions: Clindamycin HCl 300 mg PO Q6 #40 capsule Fluconazole [Diflucan] 150 mg PO ONCE #1 tablet Fluticasone Propionate [Flonase Nasal [place] 50 Mcg/[place] 16 gm] 2 sprays NASL Q12 #1 inhaler Forms: Smoking Cessation Education, Return to Work Referrals: [facility] [Provider Group] - Follow up as needed
== END 2020-08-11 22:20 | disposition home or self-care (01) ==
LOC: ER 21:46
DX: K04.7 Periapical abscess without sinus (principal); K08.89 Other specified disorders of teeth and supporting structures; H92.09 Otalgia, unspecified ear; I10 Essential (primary) hypertension; R09.81 Nasal congestion; F17.210 Nicotine dependence, cigarettes, uncomplicated; J45.909 Unspecified asthma, uncomplicated; E11.9 Type 2 diabetes mellitus without complications; Z79.84 Long term (current) use of oral hypoglycemic drugs; Z79.899 Other long term (current) drug therapy; Z88.0 Allergy status to penicillin; Z88.8 Allergy status to other drugs, medicaments and biological substances; Z88.2 Allergy status to sulfonamides
CPT/HCPCS: 99283